=== PATIENT | male | born 1945 | race Caucasian/White ===

== ENCOUNTER 2020-06-15 20:44 | Emergency (ER) | payer MEDICARE, MEDICAID ==
[~2020-06-15] VITALS: Ht 170.2 cm; Wt 61.4 kg
[2020-06-15] MEDS ORDERED: SODIUM CHLORIDE FLUSH 10ML SYR IVF ONE (21:30)
[2020-06-15] MEDS ORDERED: SODIUM CHLORIDE 0.9% 1,000ML IVBOLUS ONE (21:30)
--- NOTE | 2020-06-15 21:45 | NUR ---
PT BIB EMS FOR FAILURE TO THRIVE. PT WAS PLACED ON L2K BY POLICE. HE WAS FOUND IN HIS HOUSE, FOR WHICH HE SAYS HE LIVED THERE FOR 10 YEARS, IT WAS EXTREMELY UNKEPT AND HAD RECENTLY BEEN CONDEMMED BY THE [facility]. THERE WAS SEWAGE EVERYWHERE, NO WAY TO COOK OR STORE FOOD, THE POWER WAS OFF AND THERE WAS NO RUNNING WATER. PT STATES "I AM JUST TOO OLD TO TAKE CARE OF THE PLACE ANYMORE" PT DENIES SI/HI. IV STARTED. LABS DRAWN.
[2020-06-15 22:05] LABS: BASOPHILS % (AUTO) 2 % (0-1); EOSINOPHILS % (AUTO) 1 % (1-7); LYMPHOCYTES % (AUTO) 23 % (22-44); MEAN CORPUSCULAR HEMOGLOBIN 28.7 pg (27.5-34.5); MEAN CORPUSCULAR HGB CONC 31.9 g/dL (33.2-36.2); MEAN PLATELET VOLUME 7.8 fL (7.4-10.4); MONOCYTES % (AUTO) 6 % (2-9); NEUTROPHILS % (AUTO) 67 % (42-75); PLATELET COUNT 218 x10^3/uL (130-400); RED BLOOD COUNT 4.62 x10^6/uL (4.38-5.82); RED CELL DISTRIBUTION WIDTH 17.6 % (9.4-14.8)
[2020-06-15 22:08] LABS: ALBUMIN 3.5 g/dL (3.4-5.0); ANION GAP 3 mmol/L (5-15); CHLORIDE 112 mmol/L (98-107)
[2020-06-15 22:13] LABS: MD NO
[2020-06-15 22:15] LABS: ALANINE AMINOTRANSFERASE 15 U/L (12-78); ALKALINE PHOSPHATASE 87 U/L (45-117); BILIRUBIN,TOTAL 0.4 mg/dL (0.2-1.0); CREATININE 0.97 mg/dL (0.7-1.3); TOTAL PROTEIN 7.3 g/dL (6.4-8.2)
[2020-06-15 22:31] VITALS: BP 108/56
--- NOTE | 2020-06-15 22:31 | NUR ---
PT AMBULATED WITH HIS WALKER DOWN THE HALLWAY AND BACK WITH A STEADY GATE. PT GOT IN AND OUT OF BED SAFELY UNASSITED. PT STATES " I FEEL SAFE TO GO HOME"
== END 2020-06-15 23:22 | disposition home or self-care (01) ==
LOC: ED 21:14
DX: R62.7 Adult failure to thrive (principal); R94.31 Abnormal electrocardiogram [ECG] [EKG]; Z72.9 Problem related to lifestyle, unspecified
CPT/HCPCS: 36415; 80053; 80307; 85025; 93005; 96360; 99284; J7030

== ENCOUNTER 2020-06-19 20:27 | Inpatient (IN) | payer MEDICARE, MEDICAID ==
[~2020-06-19] VITALS: Ht 180.3 cm; Wt 73.0 kg
--- NOTE | 2020-06-19 20:37 | NUR ---
Aaron BIB ambulance with no complaints. Patient was placed on a L2K by [employer] due to failure to thrive. Patient was picked up by EMS from his home which is condemned. Patient states he often does not have a warm/home cooked meal. Patient is incontinent of stool. Hx of HIV which he takes meds for. Patient is in NAD. Respirations even and unlabored.
[2020-06-19 21:42] LABS: ALANINE AMINOTRANSFERASE 14 U/L (12-78); ALBUMIN 3.5 g/dL (3.4-5.0); ANION GAP 2 mmol/L (5-15); CHLORIDE 112 mmol/L (98-107)
[2020-06-19 21:45] LABS: ALKALINE PHOSPHATASE 96 U/L (45-117); BILIRUBIN,TOTAL 0.6 mg/dL (0.2-1.0); CREATININE 1.08 mg/dL (0.7-1.3); TOTAL PROTEIN 7.4 g/dL (6.4-8.2)
[2020-06-19 21:46] LABS: BASOPHILS % (AUTO) 1 % (0-1); EOSINOPHILS % (AUTO) 1 % (1-7); LYMPHOCYTES % (AUTO) 12 % (22-44); MEAN CORPUSCULAR HEMOGLOBIN 28.6 pg (27.5-34.5); MEAN CORPUSCULAR HGB CONC 32.2 g/dL (33.2-36.2); MEAN PLATELET VOLUME 7.5 fL (7.4-10.4); MONOCYTES % (AUTO) 7 % (2-9); NEUTROPHILS % (AUTO) 80 % (42-75); PLATELET COUNT 229 x10^3/uL (130-400); RED BLOOD COUNT 4.78 x10^6/uL (4.38-5.82); RED CELL DISTRIBUTION WIDTH 17.3 % (9.4-14.8)
--- NOTE | 2020-06-19 21:53 | NUR ---
Attempted to contact case management with no success. Decon patient and given new clothing.
[2020-06-19 21:55] LABS: MD NO
[2020-06-20] MEDS ORDERED: ONDANSETRON 2MG/ML, 2ML IVPush PRN
[2020-06-20] MEDS ORDERED: ENALAPRILAT 1.25 MG/ML, 2ML IVPush PRN
[2020-06-20] MEDS ORDERED: LACTATED RINGERS 1,000 ML IV SCH
--- NOTE | 2020-06-20 01:23 | NUR ---
Report given to Gallito. Patient transferred to room 369.
[2020-06-20 01:44] VITALS: BP 137/76
[2020-06-20 04:26] LABS: MICROSCOPIC INDICATED
[2020-06-20 05:43] LABS: BASOPHILS % (AUTO) 1 % (0-1); EOSINOPHILS % (AUTO) 1 % (1-7); LYMPHOCYTES % (AUTO) 15 % (22-44); MEAN CORPUSCULAR HEMOGLOBIN 28.6 pg (27.5-34.5); MEAN PLATELET VOLUME 7.6 fL (7.4-10.4); MONOCYTES % (AUTO) 8 % (2-9); NEUTROPHILS % (AUTO) 75 % (42-75); PLATELET COUNT 212 x10^3/uL (130-400); RED BLOOD COUNT 4.36 x10^6/uL (4.38-5.82); RED CELL DISTRIBUTION WIDTH 17.1 % (9.4-14.8)
[2020-06-20 05:49] LABS: ANION GAP 7 mmol/L (5-15); CALCIUM 8.7 mg/dL (8.5-10.1); CHLORIDE 116 mmol/L (98-107)
[2020-06-20 05:51] LABS: CREATININE 0.96 mg/dL (0.7-1.3)
[2020-06-20 06:00] LABS: MD NO
[2020-06-20 07:29] VITALS: BP 127/78
[2020-06-20] MEDS: PHENAZOPYRIDINE 200 MG TABLET PO PRN ×2 (13:35→20:13)
[2020-06-20] MEDS: CEFTRIAXONE PMX 1GM/50ML 50 ML IV SCH (13:59)
[2020-06-20 14:53] VITALS: BP 113/66
[2020-06-20] MEDS ORDERED: PLEASE ENTER ALLERGIES MC SCH ×2 (16:30)
[2020-06-20] MEDS: ENOXAPARIN 40 MG/0.4 ML SQ SCH (17:34)
[2020-06-20 18:59] VITALS: BP 121/65
[2020-06-20] MEDS: EMTRICITABINE/TENOFOVIR 200 MG/300 MG TABLET PO SCH (20:13)
[2020-06-20] MEDS: EFAVIRENZ 600 MG TAB PO SCH (20:13)
[2020-06-20] MEDS: MELATONIN 5 MG TABLET PO PRN (20:13)
[2020-06-20] MEDS ORDERED: EFAVIRENZ/EMTRICITAB/TENOFOVIR 600MG-200MG-300MG TABLET PO SCH (21:00)
[2020-06-20] MEDS: ACETAMINOPHEN 325 MG TABLET PO PRN (21:46)
[2020-06-21] MEDS: PHENAZOPYRIDINE 200 MG TABLET PO PRN ×3 (04:37→21:22)
[2020-06-21 08:46] VITALS: BP 131/75
[2020-06-21] MEDS: ACETAMINOPHEN 325 MG TABLET PO PRN (13:47)
[2020-06-21] MEDS: CEFTRIAXONE PMX 1GM/50ML 50 ML IV SCH (14:37)
[2020-06-21 15:05] VITALS: BP 94/53
[2020-06-21] MEDS: KETOROLAC 30 MG/1 ML IVPush PRN (15:41)
[2020-06-21] MEDS: ENOXAPARIN 40 MG/0.4 ML SQ SCH (17:40)
[2020-06-21] MEDS: LEVOFLOXACIN/PMX 750MG/150ML 150 ML IV SCH (17:40)
[2020-06-21 18:46] VITALS: BP 92/58
[2020-06-21 21:20] VITALS: BP 94/60
[2020-06-21] MEDS: EMTRICITABINE/TENOFOVIR 200 MG/300 MG TABLET PO SCH (21:22)
[2020-06-21] MEDS: EFAVIRENZ 600 MG TAB PO SCH (21:22)
[2020-06-21 22:00] VITALS: BP_SYST 103; BP_SYST 106; BP_DIAS 60; BP_DIAS 61
[2020-06-22 01:14] VITALS: BP 122/74
[2020-06-22 04:49] LABS: BASOPHILS % (AUTO) 1 % (0-1); EOSINOPHILS % (AUTO) 1 % (1-7); LYMPHOCYTES % (AUTO) 16 % (22-44); MEAN CORPUSCULAR HEMOGLOBIN 28.5 pg (27.5-34.5); MEAN CORPUSCULAR HGB CONC 32.4 g/dL (33.2-36.2); MEAN PLATELET VOLUME 7.7 fL (7.4-10.4); MONOCYTES % (AUTO) 8 % (2-9); NEUTROPHILS % (AUTO) 75 % (42-75); PLATELET COUNT 144 x10^3/uL (130-400); RED BLOOD COUNT 4.24 x10^6/uL (4.38-5.82); RED CELL DISTRIBUTION WIDTH 17.3 % (9.4-14.8)
[2020-06-22 05:00] LABS: ANION GAP 5 mmol/L (5-15); CALCIUM 8.7 mg/dL (8.5-10.1); CHLORIDE 112 mmol/L (98-107)
[2020-06-22 05:01] LABS: CREATININE 0.94 mg/dL (0.7-1.3); MD NO
[2020-06-22 06:47] VITALS: BP 125/81
[2020-06-22] MEDS: PHENAZOPYRIDINE 200 MG TABLET PO PRN ×2 (09:16→13:20)
[2020-06-22 12:05] VITALS: BP 119/78
[2020-06-22] MEDS: KETOROLAC 30 MG/1 ML IVPush PRN (13:20)
[2020-06-22] MEDS: LEVOFLOXACIN/PMX 750MG/150ML 150 ML IV SCH (17:01)
[2020-06-22] MEDS: ENOXAPARIN 40 MG/0.4 ML SQ SCH (17:02)
[2020-06-22 18:21] VITALS: BP 111/68
[2020-06-22] MEDS: EFAVIRENZ 600 MG TAB PO SCH (20:13)
[2020-06-22] MEDS: EMTRICITABINE/TENOFOVIR 200 MG/300 MG TABLET PO SCH (20:13)
[2020-06-23 00:29] VITALS: BP 138/95
[2020-06-23 06:19] VITALS: BP 165/83
[2020-06-23] MEDS: PHENAZOPYRIDINE 200 MG TABLET PO PRN ×2 (09:48→15:59)
[2020-06-23 12:10] VITALS: BP 113/53
[2020-06-23] MEDS: KETOROLAC 30 MG/1 ML IVPush PRN (15:58)
[2020-06-23] MEDS: ENOXAPARIN 40 MG/0.4 ML SQ SCH (15:58)
[2020-06-23] MEDS ORDERED: LEVOFLOXACIN 750 MG TABLET PO SCH (16:00)
[2020-06-23 18:34] VITALS: BP 117/74
[2020-06-23] MEDS: MELATONIN 5 MG TABLET PO PRN (19:49)
[2020-06-23] MEDS: EFAVIRENZ 600 MG TAB PO SCH (19:51)
[2020-06-23] MEDS: EMTRICITABINE/TENOFOVIR 200 MG/300 MG TABLET PO SCH (19:51)
[2020-06-24 00:44] VITALS: BP 107/61
[2020-06-24 05:26] LABS: ANION GAP 4 mmol/L (5-15); CALCIUM 8.9 mg/dL (8.5-10.1); CHLORIDE 113 mmol/L (98-107); CREATININE 0.81 mg/dL (0.7-1.3)
[2020-06-24 06:41] VITALS: BP 123/66
[2020-06-24] MEDS: PHENAZOPYRIDINE 200 MG TABLET PO PRN ×2 (09:26→15:35)
[2020-06-24] MEDS ORDERED: EMTR1TAB8 PO (12:05)
[2020-06-24] MEDS ORDERED: EFAV600T PO (12:05)
[2020-06-24] MEDS ORDERED: CEFD300C37 PO (12:05)
[2020-06-24] MEDS ORDERED: PHEN-583 PO (12:05)
[2020-06-24] MEDS ORDERED: AMOX875T PO (12:05)
[2020-06-24 12:18] VITALS: BP 129/80
[2020-06-24] MEDS: ENOXAPARIN 40 MG/0.4 ML SQ SCH (15:35)
[2020-06-24] MEDS ORDERED: FLU VACC QS2020-21(6MOS UP)/PF 60MCG/0.5 ML SYR IM-VACC ONE (16:00)
[2020-06-24] MEDS ORDERED: CEFDINIR 300 MG CAPSULE PO SCH (21:00)
== END 2020-06-24 17:29 | DRG 690 ==
LOC: ED 21:47 → INTOOBSV 06-20 00:03 → EDIP 06-20 00:03 → 3N 06-20 01:16 → OBSVTOIN 06-21 10:07 → 4WST 06-21 18:26
PROVIDERS: ADMIT Family Medicine; ATTEND Family Medicine
DX: N39.0 Urinary tract infection, site not specified (principal); R32 Unspecified urinary incontinence; R62.7 Adult failure to thrive; E27.9 Disorder of adrenal gland, unspecified; N13.30 Unspecified hydronephrosis; Z21 Asymptomatic human immunodeficiency virus [HIV] infection status
CPT/HCPCS: 36415; 74178; 76770; 80048; 80053; 81001; 82607; 84443; 85025; 86361; 87077; 87086; 87186; 87491; 87591; 90686; 93005; G0378; J0696; J1650; J1885; J1956; 92523-GN; J7120

== ENCOUNTER 2020-08-28 08:27 | Emergency (ER) | payer MEDICARE, MEDICAID ==
[~2020-08-28] VITALS: Ht 180.3 cm; Wt 85.0 kg
[~2020-08-28 08:27] MED LIST: AMOX875T PO; CEFD300C37 PO; EFAV600T PO; EMTR1TAB8 PO; PHEN-583 PO
--- NOTE | 2020-08-28 08:37 | NUR ---
PATIENT BIB [facility] WITH CHIEF C/O URINARY RETENTION AND RIGHT RIB PAIN. PER EMS PATIENT WAS AT [facility] 4 DAYS AGO FOR URINARY RETENTION, PATIENT HAD A COREY THAT WAS REMOVED AT [facility] AND HE WAS DISCHARGED HOME. PATIENT HAS NOT URINATED SINCE BEING DISCHARGED 4 DAYS AGO. PATIENT FELL YESTERDAY 08/27/2020 AND C/O OF RIGHT RIB PAIN. PER EMS PATIENT HAS BEEN TAKING THREE 325 MG ASPIRIN'S SINCE YESTERDAY FOR HIS RIB PAIN. PER EMS VITALS STABLE EN ROUTE. NADN, VSS, 20 GAUGE IV STARTED LEFT WRIST, SIDE RAILS UP X2, CALL LIGHT WITHIN REACH.
--- NOTE | 2020-08-28 08:37 | NUR ---
PATIENT PROVIDED URINAL TO TRY AND URINATE, PATIENT HAS THE URGE, BUT UNABLE TO URINATE. BLADDER SCAN SHOWED 346 mLS IN BLADDER.
[2020-08-28 08:54] LABS: BASOPHILS % (AUTO) 1 % (0-1); EOSINOPHILS % (AUTO) 0 % (1-7); LYMPHOCYTES % (AUTO) 20 % (22-44); MEAN CORPUSCULAR HEMOGLOBIN 30.4 pg (27.5-34.5); MEAN CORPUSCULAR HGB CONC 33.4 g/dL (33.2-36.2); MEAN PLATELET VOLUME 7.2 fL (7.4-10.4); MONOCYTES % (AUTO) 9 % (2-9); NEUTROPHILS % (AUTO) 70 % (42-75); PLATELET COUNT 162 x10^3/uL (130-400); RED BLOOD COUNT 4.24 x10^6/uL (4.38-5.82); RED CELL DISTRIBUTION WIDTH 17.6 % (9.4-14.8)
[2020-08-28 08:59] LABS: MD NO
[2020-08-28] MEDS ORDERED: OXYcodone/APAP 5/325MG TABLET PO ONE (09:00)
[2020-08-28] MEDS ORDERED: OXYcodone/APAP 5/325MG TABLET ONE (09:01)
[2020-08-28 09:07] LABS: ALBUMIN 3.8 g/dL (3.4-5.0); ANION GAP 6 mmol/L (5-15); CALCIUM 9.2 mg/dL (8.5-10.1); CHLORIDE 116 mmol/L (98-107)
[2020-08-28 09:10] LABS: ALANINE AMINOTRANSFERASE 23 U/L (12-78); ALKALINE PHOSPHATASE 82 U/L (45-117); BILIRUBIN,TOTAL 0.6 mg/dL (0.2-1.0); CREATININE 1.15 mg/dL (0.7-1.3); TOTAL PROTEIN 7.4 g/dL (6.4-8.2)
--- NOTE | 2020-08-28 09:25 | NUR ---
PATIENT MEDICATED PER [facility], INCENTIVE SPIROMETER GIVEN TO PATIENT AND PATIENT EDUCATED ON USE. 16 Nigerien COREY PLACED, AND URINE SAMPLE COLLECTED AND SENT TO LAB. PATIENT TOLERATED PROCEDURE WELL. CATARINAN, VSS, CALL LIGHT WITHIN REACH, SIDE RAILS UP X2.
[2020-08-28] MEDS ORDERED: CEFTRIAXONE PMX 1GM/50ML 50 ML ONE (09:39)
[2020-08-28] MEDS ORDERED: AZITHROMYCIN 500 MG in SODIUM CHLORIDE 0.9% 250 ML IV ONE (10:00)
[2020-08-28 10:15] LABS: MICROSCOPIC AUTO
--- NOTE | 2020-08-28 10:42 | NUR ---
PATIENT RESTING IN GURNEY WITH EYES CLOSED, RESP EVEN AND UNLABORED, NADN, VSS, SIDE RAILS UP X2, CALL LIGHT WITHIN REACH. SOCIAL WORK PAGED.
[2020-08-28] MEDS ORDERED: CEFTRIAXONE PMX 1GM/50ML 50 ML IV ONE (11:00)
--- NOTE | 2020-08-28 11:30 | NUR ---
AMBULATED WITH PATIENT 100 FEET DOWN THE [place], PATIENT WAS STEADY WITH USE OF CANE.
[2020-08-28 12:12] VITALS: BP 108/66
== END 2020-08-28 12:54 | disposition home or self-care (01) ==
LOC: ED 08:42
DX: J18.0 Bronchopneumonia, unspecified organism (principal); N30.00 Acute cystitis without hematuria; N40.1 Benign prostatic hyperplasia with lower urinary tract symptoms; R33.8 Other retention of urine; I44.7 Left bundle-branch block, unspecified; I25.2 Old myocardial infarction; Z87.891 Personal history of nicotine dependence
CPT/HCPCS: 36415; 51702; 71045; 80053; 81001; 85025; 87086; 87106; 93005; 96365; 96368; 99285; J0456; J0696; J7050

== ENCOUNTER 2020-09-01 09:23 | Inpatient (IN) | payer MEDICARE, MEDICAID ==
[~2020-09-01] VITALS: Ht 180.3 cm; Wt 84.4 kg
--- NOTE | 2020-09-01 09:35 | NUR ---
Pt knows who he is and where he is, however he believes it to be October 2002. Pt came from home where he lives with a significant other. Social work to be consulted. Pt was here approx 1 week ago for urinary retention. Pt has aguilar cath. Urine in bag with sedementation. Pt does not have temp but is breathing at a rapid shallow rate. Pt returned this AM after new loss of bowel control. Pt connected to BP and O2 monitors. Call light in reach.
[2020-09-01 10:13] LABS: BASOPHILS % (AUTO) 1 % (0-1); EOSINOPHILS % (AUTO) 2 % (1-7); LYMPHOCYTES % (AUTO) 20 % (22-44); MD NO; MEAN CORPUSCULAR HEMOGLOBIN 29.8 pg (27.5-34.5); MEAN PLATELET VOLUME 7.2 fL (7.4-10.4); MONOCYTES % (AUTO) 10 % (2-9); NEUTROPHILS % (AUTO) 67 % (42-75); PLATELET COUNT 186 x10^3/uL (130-400); RED BLOOD COUNT 4.41 x10^6/uL (4.38-5.82); RED CELL DISTRIBUTION WIDTH 17.2 % (9.4-14.8)
[2020-09-01 10:21] LABS: ALANINE AMINOTRANSFERASE 17 U/L (12-78); ALBUMIN 3.6 g/dL (3.4-5.0); ANION GAP 5 mmol/L (5-15); CALCIUM 9.1 mg/dL (8.5-10.1); CHLORIDE 114 mmol/L (98-107); CREATININE 1.07 mg/dL (0.7-1.3)
[2020-09-01 10:23] LABS: ALKALINE PHOSPHATASE 84 U/L (45-117); BILIRUBIN,TOTAL 0.4 mg/dL (0.2-1.0); TOTAL PROTEIN 7.5 g/dL (6.4-8.2)
[2020-09-01] MEDS ORDERED: MORPHINE SULFATE 4 MG/ML, 1ML IVPush PRN (11:00)
[2020-09-01] MEDS ORDERED: ONDANSETRON 2MG/ML, 2ML IVPush ONE (11:00)
[2020-09-01] MEDS ORDERED: SODIUM CHLORIDE 0.9% 1,000ML IVBOLUS ONE (11:00)
[2020-09-01 11:21] LABS: MICROSCOPIC INDICATED
--- NOTE | 2020-09-01 12:15 | NUR ---
Pt to CT at this time.
[2020-09-01] MEDS ORDERED: OMNIPAQUE 350 MG/ML, 100ML BOTTLE ONE (12:53)
--- NOTE | 2020-09-01 13:17 | NUR ---
Pt sleeping. Visible chest rise and fall. Awaiting CT reads and will put chart back up for recheck.
[2020-09-01] MEDS ORDERED: CEFTRIAXONE PMX 1GM/50ML 50 ML IVPB ONE (14:30)
[2020-09-01] MEDS ORDERED: CEFTRIAXONE PMX 1GM/50ML 50 ML ONE (14:42)
--- NOTE | 2020-09-01 14:55 | NUR ---
Report to SUKHWINDER Gilbert. Pt sleeping. NADN. All needs met.
--- NOTE | 2020-09-01 14:55 | NUR ---
Social work involved with this patient's care. Per social work EPS already aware of this patient.
[2020-09-01] MEDS ORDERED: PHENAZOPYRIDINE 200 MG TABLET PO PRN (15:00)
[2020-09-01 15:23] VITALS: BP 137/84
[2020-09-01] MEDS ORDERED: GADOTERATE 10 MMOL/20 ML VIAL ONE (16:19)
[2020-09-01 16:33] LABS: AMPHETAMINE SCREEN, URINE Negative (Negative); BARBITURATE SCREEN, URINE Negative (Negative); BENZODIAZEPINE SCREEN, URINE Negative (Negative); CANNABINOID SCREEN, URINE Negative (Negative); COCAINE SCREEN, URINE Negative (Negative); METHADONE SCREEN, URINE Negative (Negative); OPIATE SCREEN, URINE Negative (Negative)
[2020-09-01 18:48] VITALS: BP 102/62
[2020-09-01] MEDS ORDERED: ASPIRIN 81 MG TABLET CHEW PO ONE (19:00)
[2020-09-01] MEDS ORDERED: POLYETHYLENE GLYCOL 17 GM PACKET PO PRN (19:00)
[2020-09-01] MEDS: LACTATED RINGERS 1,000 ML IV SCH (19:34)
[2020-09-01] MEDS: ENOXAPARIN 40 MG/0.4 ML SQ SCH (19:43)
[2020-09-01] MEDS: EMTRICITABINE/TENOFOVIR 200 MG/300 MG TABLET PO SCH (19:44)
[2020-09-01] MEDS: EFAVIRENZ 600 MG TAB PO SCH (19:44)
[2020-09-02 00:59] VITALS: BP 133/76
[2020-09-02] MEDS: LACTATED RINGERS 1,000 ML IV SCH ×3 (04:41→23:22)
[2020-09-02 05:15] LABS: CHOL/HDL RATIO 2.4
[2020-09-02] MEDS: ASPIRIN 81 MG TABLET CHEW PO SCH (06:54)
[2020-09-02 07:56] VITALS: BP 131/76
[2020-09-02] MEDS: SENNA/DOCUSATE TABLET PO SCH (08:22)
[2020-09-02] MEDS: CLOPIDOGREL 75 MG TABLET PO SCH (08:22)
[2020-09-02 13:03] VITALS: BP 102/57
[2020-09-02] MEDS ORDERED: POLYETHYLENE GLYCOL 17 GM PACKET NG PRN (16:00)
[2020-09-02 18:54] VITALS: BP 97/55
[2020-09-02] MEDS: ENOXAPARIN 40 MG/0.4 ML SQ SCH (20:01)
[2020-09-02] MEDS: EFAVIRENZ 600 MG TAB PO SCH (20:02)
[2020-09-02] MEDS: EMTRICITABINE/TENOFOVIR 200 MG/300 MG TABLET PO SCH (20:02)
[2020-09-03 01:36] VITALS: BP 144/73
[2020-09-03] MEDS: HYDROcodone/APAP 5/325 TABLET PO PRN (03:29)
[2020-09-03] MEDS: ASPIRIN 81 MG TABLET CHEW PO SCH (05:31)
[2020-09-03 07:08] VITALS: BP 102/68
[2020-09-03] MEDS: CLOPIDOGREL 75 MG TABLET PO SCH (08:25)
[2020-09-03] MEDS: SENNA/DOCUSATE TABLET PO SCH (08:26)
[2020-09-03] MEDS: LACTATED RINGERS 1,000 ML IV SCH (11:03)
[2020-09-03 12:15] VITALS: BP 116/67
[2020-09-03] MEDS: ENOXAPARIN 40 MG/0.4 ML SQ SCH (19:30)
[2020-09-03] MEDS: EMTRICITABINE/TENOFOVIR 200 MG/300 MG TABLET PO SCH (19:30)
[2020-09-03] MEDS: EFAVIRENZ 600 MG TAB PO SCH (19:31)
[2020-09-03 20:04] VITALS: BP 136/65
[2020-09-04 01:37] VITALS: BP 131/76
[2020-09-04] MEDS: ASPIRIN 81 MG TABLET CHEW PO SCH (05:09)
[2020-09-04 06:28] LABS: CREATININE 0.95 mg/dL (0.7-1.3)
[2020-09-04] MEDS: SENNA/DOCUSATE TABLET PO SCH (08:45)
[2020-09-04] MEDS: CLOPIDOGREL 75 MG TABLET PO SCH (08:45)
[2020-09-04 09:19] VITALS: BP 115/77
[2020-09-04 14:38] LABS: TROPONIN I < 0.015 ng/mL (0.000-0.045)
[2020-09-04 15:27] VITALS: BP 111/68
[2020-09-04 19:20] VITALS: BP 98/59
[2020-09-04] MEDS: ENOXAPARIN 40 MG/0.4 ML SQ SCH (20:02)
[2020-09-04] MEDS: EMTRICITABINE/TENOFOVIR 200 MG/300 MG TABLET PO SCH (21:14)
[2020-09-04] MEDS: EFAVIRENZ 600 MG TAB PO SCH (21:14)
[2020-09-05] MEDS: HYDROcodone/APAP 5/325 TABLET PO PRN ×2 (00:58→06:29)
[2020-09-05 01:31] VITALS: BP 126/68
[2020-09-05 04:28] LABS: TROPONIN I < 0.015 ng/mL (0.000-0.045)
[2020-09-05] MEDS: ASPIRIN 81 MG TABLET CHEW PO SCH (06:30)
[2020-09-05 07:41] VITALS: BP 118/64
[2020-09-05] MEDS ORDERED: REGADENOSON 0.4 MG/5 ML SYRINGE ONE (08:11)
[2020-09-05] MEDS: SENNA/DOCUSATE TABLET PO SCH (09:56)
[2020-09-05] MEDS: CLOPIDOGREL 75 MG TABLET PO SCH (09:56)
[2020-09-05] MEDS: ONDANSETRON ODT 4 MG PO PRN (09:56)
[2020-09-05 12:23] LABS: BASOPHILS % (AUTO) 1 % (0-1); EOSINOPHILS % (AUTO) 2 % (1-7); LYMPHOCYTES % (AUTO) 25 % (22-44); MEAN CORPUSCULAR HEMOGLOBIN 29.9 pg (27.5-34.5); MEAN CORPUSCULAR HGB CONC 33.6 g/dL (33.2-36.2); MEAN PLATELET VOLUME 7.3 fL (7.4-10.4); MONOCYTES % (AUTO) 11 % (2-9); NEUTROPHILS % (AUTO) 61 % (42-75); PLATELET COUNT 175 x10^3/uL (130-400); RED CELL DISTRIBUTION WIDTH 16.7 % (9.4-14.8)
[2020-09-05 12:24] LABS: MD NO
[2020-09-05 12:36] LABS: ANION GAP 4 mmol/L (5-15); CHLORIDE 110 mmol/L (98-107)
[2020-09-05 13:03] LABS: CREATININE 0.93 mg/dL (0.7-1.3)
[2020-09-05 13:57] VITALS: BP 102/64
[2020-09-05] MEDS: ENOXAPARIN 40 MG/0.4 ML SQ SCH (17:31)
[2020-09-05 20:01] VITALS: BP 104/66
[2020-09-05] MEDS ORDERED: FAMOTIDINE 40 MG TABLET ONE (21:35)
[2020-09-05] MEDS: FAMOTIDINE 20 MG TABLET PO SCH (21:39)
[2020-09-05] MEDS: EFAVIRENZ 600 MG TAB PO SCH (21:40)
[2020-09-05] MEDS: EMTRICITABINE/TENOFOVIR 200 MG/300 MG TABLET PO SCH (21:41)
[2020-09-06 01:29] VITALS: BP 112/68
[2020-09-06] MEDS: HYDROcodone/APAP 5/325 TABLET PO PRN ×2 (04:07→20:09)
[2020-09-06] MEDS: ASPIRIN 81 MG TABLET CHEW PO SCH (04:07)
[2020-09-06 04:27] VITALS: BP 86/47
[2020-09-06 07:51] VITALS: BP 128/68
[2020-09-06] MEDS ORDERED: FAMOTIDINE 40 MG TABLET ONE (09:54)
[2020-09-06] MEDS: SENNA/DOCUSATE TABLET PO SCH (10:02)
[2020-09-06] MEDS: CYANOCOBALAMIN 1,000 MCG TABLET PO SCH (10:02)
[2020-09-06] MEDS: CLOPIDOGREL 75 MG TABLET PO SCH (10:02)
[2020-09-06] MEDS: FAMOTIDINE 20 MG TABLET PO SCH ×2 (10:03→20:09)
[2020-09-06 10:16] LABS: BASOPHILS % (AUTO) 1 % (0-1); EOSINOPHILS % (AUTO) 1 % (1-7); LYMPHOCYTES % (AUTO) 32 % (22-44); MEAN CORPUSCULAR HEMOGLOBIN 29.8 pg (27.5-34.5); MEAN CORPUSCULAR HGB CONC 33.6 g/dL (33.2-36.2); MEAN PLATELET VOLUME 7.7 fL (7.4-10.4); MONOCYTES % (AUTO) 10 % (2-9); NEUTROPHILS % (AUTO) 56 % (42-75); PLATELET COUNT 177 x10^3/uL (130-400); RED BLOOD COUNT 4.33 x10^6/uL (4.38-5.82); RED CELL DISTRIBUTION WIDTH 16.6 % (9.4-14.8)
[2020-09-06 10:26] LABS: ANION GAP 5 mmol/L (5-15); CALCIUM 9.4 mg/dL (8.5-10.1); CHLORIDE 109 mmol/L (98-107)
[2020-09-06 10:27] LABS: CREATININE 0.98 mg/dL (0.7-1.3)
[2020-09-06 10:29] LABS: MD NO
[2020-09-06] MEDS: LISINOPRIL 5 MG TABLET PO SCH (11:38)
[2020-09-06 13:17] VITALS: BP 131/74
[2020-09-06] MEDS: CARVEDILOL 6.25 MG TABLET PO SCH (17:58)
[2020-09-06] MEDS: ENOXAPARIN 40 MG/0.4 ML SQ SCH (17:59)
[2020-09-06 19:27] VITALS: BP 95/61
[2020-09-06] MEDS: EMTRICITABINE/TENOFOVIR 200 MG/300 MG TABLET PO SCH (20:08)
[2020-09-06] MEDS: EFAVIRENZ 600 MG TAB PO SCH (20:09)
[2020-09-06] MEDS: ATORVASTATIN 40 MG TABLET PO SCH (20:09)
[2020-09-07 02:52] VITALS: BP 105/74
[2020-09-07] MEDS: ASPIRIN 81 MG TABLET CHEW PO SCH (05:38)
[2020-09-07] MEDS: HYDROcodone/APAP 5/325 TABLET PO PRN (05:38)
[2020-09-07] MEDS: CARVEDILOL 6.25 MG TABLET PO SCH ×2 (05:38→18:02)
[2020-09-07 05:46] LABS: ANION GAP 5 mmol/L (5-15); BASOPHILS % (AUTO) 1 % (0-1); CALCIUM 9.1 mg/dL (8.5-10.1); CHLORIDE 110 mmol/L (98-107); EOSINOPHILS % (AUTO) 1 % (1-7); LYMPHOCYTES % (AUTO) 35 % (22-44); MEAN CORPUSCULAR HEMOGLOBIN 29.7 pg (27.5-34.5); MEAN CORPUSCULAR HGB CONC 33.4 g/dL (33.2-36.2); MEAN PLATELET VOLUME 7.5 fL (7.4-10.4); MONOCYTES % (AUTO) 11 % (2-9); NEUTROPHILS % (AUTO) 52 % (42-75); PLATELET COUNT 193 x10^3/uL (130-400); RED CELL DISTRIBUTION WIDTH 17.1 % (9.4-14.8)
[2020-09-07 05:48] LABS: CREATININE 0.94 mg/dL (0.7-1.3)
[2020-09-07 05:57] LABS: MD NO
[2020-09-07 08:16] VITALS: BP 100/62
[2020-09-07] MEDS ORDERED: FAMOTIDINE 40 MG TABLET ONE ×2 (08:34→21:10)
[2020-09-07] MEDS: CLOPIDOGREL 75 MG TABLET PO SCH (08:38)
[2020-09-07] MEDS: LISINOPRIL 5 MG TABLET PO SCH (08:38)
[2020-09-07] MEDS: SENNA/DOCUSATE TABLET PO SCH (08:38)
[2020-09-07] MEDS: FAMOTIDINE 20 MG TABLET PO SCH ×2 (08:38→21:24)
[2020-09-07] MEDS: CYANOCOBALAMIN 1,000 MCG TABLET PO SCH (08:38)
[2020-09-07] MEDS ORDERED: GADOTERATE 7.5 MMOL/15 ML VIAL ONE (10:16)
[2020-09-07 14:09] VITALS: BP 103/59
[2020-09-07 18:01] VITALS: BP 96/54
[2020-09-07] MEDS: ENOXAPARIN 40 MG/0.4 ML SQ SCH (18:02)
[2020-09-07] MEDS: EMTRICITABINE/TENOFOVIR 200 MG/300 MG TABLET PO SCH (21:23)
[2020-09-07] MEDS: EFAVIRENZ 600 MG TAB PO SCH (21:23)
[2020-09-07] MEDS: ATORVASTATIN 40 MG TABLET PO SCH (21:24)
[2020-09-07 21:28] VITALS: BP 96/63
[2020-09-08 00:52] VITALS: BP 116/74
[2020-09-08 04:38] LABS: BASOPHILS % (AUTO) 1 % (0-1); EOSINOPHILS % (AUTO) 1 % (1-7); LYMPHOCYTES % (AUTO) 29 % (22-44); MEAN CORPUSCULAR HGB CONC 33.8 g/dL (33.2-36.2); MEAN PLATELET VOLUME 7.5 fL (7.4-10.4); MONOCYTES % (AUTO) 9 % (2-9); NEUTROPHILS % (AUTO) 60 % (42-75); PLATELET COUNT 183 x10^3/uL (130-400); RED BLOOD COUNT 4.34 x10^6/uL (4.38-5.82); RED CELL DISTRIBUTION WIDTH 16.9 % (9.4-14.8)
[2020-09-08 04:48] LABS: ALBUMIN 3.1 g/dL (3.4-5.0); ANION GAP 4 mmol/L (5-15); CHLORIDE 111 mmol/L (98-107)
[2020-09-08 04:53] LABS: ALANINE AMINOTRANSFERASE 17 U/L (12-78); ALKALINE PHOSPHATASE 109 U/L (45-117); BILIRUBIN,TOTAL 0.5 mg/dL (0.2-1.0); CREATININE 0.93 mg/dL (0.7-1.3); TOTAL PROTEIN 6.9 g/dL (6.4-8.2)
[2020-09-08] MEDS: CARVEDILOL 6.25 MG TABLET PO SCH ×2 (05:11→18:21)
[2020-09-08] MEDS: ASPIRIN 81 MG TABLET CHEW PO SCH (05:11)
[2020-09-08 05:21] LABS: MD NO
[2020-09-08 08:19] VITALS: BP 100/63
[2020-09-08] MEDS: LISINOPRIL 5 MG TABLET PO SCH (08:22)
[2020-09-08] MEDS ORDERED: FAMOTIDINE 40 MG TABLET ONE (08:24)
[2020-09-08] MEDS: CYANOCOBALAMIN 1,000 MCG TABLET PO SCH (08:26)
[2020-09-08] MEDS: CLOPIDOGREL 75 MG TABLET PO SCH (08:26)
[2020-09-08] MEDS: FAMOTIDINE 20 MG TABLET PO SCH ×2 (08:26→20:02)
[2020-09-08] MEDS: SENNA/DOCUSATE TABLET PO SCH (08:26)
[2020-09-08] MEDS: HYDROcodone/APAP 5/325 TABLET PO PRN ×2 (08:29→20:00)
[2020-09-08] MEDS ORDERED: ATOR40TA78 PO (11:51)
[2020-09-08] MEDS ORDERED: CLOP75TA PO (11:51)
[2020-09-08] MEDS ORDERED: LISI5TAB7 PO ×2 (11:51)
[2020-09-08] MEDS ORDERED: ASPI-963 PO (11:51)
[2020-09-08] MEDS ORDERED: CARV6.2512 PO ×2 (11:51)
[2020-09-08 15:59] VITALS: BP 116/75
[2020-09-08 18:18] VITALS: BP 103/66
[2020-09-08] MEDS: ENOXAPARIN 40 MG/0.4 ML SQ SCH (18:21)
[2020-09-08 18:39] VITALS: BP 104/66
[2020-09-08] MEDS: ATORVASTATIN 40 MG TABLET PO SCH (19:59)
[2020-09-08] MEDS: EMTRICITABINE/TENOFOVIR 200 MG/300 MG TABLET PO SCH (20:00)
[2020-09-08] MEDS: EFAVIRENZ 600 MG TAB PO SCH (20:00)
[2020-09-09 01:10] VITALS: BP 125/74
[2020-09-09] MEDS: ASPIRIN 81 MG TABLET CHEW PO SCH (05:44)
[2020-09-09] MEDS: CARVEDILOL 6.25 MG TABLET PO SCH ×2 (05:44→17:13)
[2020-09-09 05:50] LABS: BASOPHILS % (AUTO) 1 % (0-1); EOSINOPHILS % (AUTO) 2 % (1-7); LYMPHOCYTES % (AUTO) 30 % (22-44); MEAN CORPUSCULAR HGB CONC 33.4 g/dL (33.2-36.2); MEAN PLATELET VOLUME 7.3 fL (7.4-10.4); MONOCYTES % (AUTO) 10 % (2-9); NEUTROPHILS % (AUTO) 57 % (42-75); PLATELET COUNT 196 x10^3/uL (130-400); RED BLOOD COUNT 4.14 x10^6/uL (4.38-5.82); RED CELL DISTRIBUTION WIDTH 16.9 % (9.4-14.8)
[2020-09-09 05:52] LABS: MD NO
[2020-09-09 06:08] LABS: CHLORIDE 110 mmol/L (98-107)
[2020-09-09 06:20] LABS: ANION GAP 5 mmol/L (5-15); CALCIUM 8.8 mg/dL (8.5-10.1); CREATININE 0.92 mg/dL (0.7-1.3)
[2020-09-09 08:16] VITALS: BP 111/70
[2020-09-09] MEDS ORDERED: FAMOTIDINE 40 MG TABLET ONE (10:41)
[2020-09-09] MEDS: FAMOTIDINE 20 MG TABLET PO SCH (10:43)
[2020-09-09] MEDS: LISINOPRIL 5 MG TABLET PO SCH (10:43)
[2020-09-09] MEDS: CYANOCOBALAMIN 1,000 MCG TABLET PO SCH (10:43)
[2020-09-09] MEDS: CLOPIDOGREL 75 MG TABLET PO SCH (10:43)
[2020-09-09] MEDS: SENNA/DOCUSATE TABLET PO SCH (10:44)
[2020-09-09 12:46] VITALS: BP 104/64
[2020-09-09 17:12] VITALS: BP 107/50
[2020-09-09] MEDS: ENOXAPARIN 40 MG/0.4 ML SQ SCH (17:13)
[2020-09-09 18:20] VITALS: BP 94/64
[2020-09-09] MEDS: EFAVIRENZ 600 MG TAB PO SCH (20:21)
[2020-09-09] MEDS: ACETAMINOPHEN 325 MG TABLET PO PRN (20:21)
[2020-09-09] MEDS: EMTRICITABINE/TENOFOVIR 200 MG/300 MG TABLET PO SCH (20:21)
[2020-09-09] MEDS: ATORVASTATIN 40 MG TABLET PO SCH (20:21)
[2020-09-10 00:32] VITALS: BP 113/71
[2020-09-10] MEDS: ASPIRIN 81 MG TABLET CHEW PO SCH (04:49)
[2020-09-10] MEDS: CARVEDILOL 6.25 MG TABLET PO SCH ×2 (04:49→17:44)
[2020-09-10 07:12] VITALS: BP 103/63
[2020-09-10] MEDS: SENNA/DOCUSATE TABLET PO SCH (08:28)
[2020-09-10] MEDS: CLOPIDOGREL 75 MG TABLET PO SCH (08:29)
[2020-09-10] MEDS: CYANOCOBALAMIN 1,000 MCG TABLET PO SCH (08:29)
[2020-09-10] MEDS: LISINOPRIL 5 MG TABLET PO SCH (08:29)
[2020-09-10 13:31] VITALS: BP_SYST 107; BP_SYST 95; BP_DIAS 59; BP_DIAS 70
[2020-09-10 17:43] VITALS: BP 92/52
[2020-09-10] MEDS: ENOXAPARIN 40 MG/0.4 ML SQ SCH (17:44)
[2020-09-10 18:34] VITALS: BP 100/58
[2020-09-10] MEDS: EFAVIRENZ 600 MG TAB PO SCH (19:35)
[2020-09-10] MEDS: EMTRICITABINE/TENOFOVIR 200 MG/300 MG TABLET PO SCH (19:35)
[2020-09-10] MEDS: ATORVASTATIN 40 MG TABLET PO SCH (19:35)
[2020-09-11 00:14] VITALS: BP 117/74
[2020-09-11] MEDS: TRAZODONE 50MG TABLET PO PRN ×2 (01:14→20:24)
[2020-09-11] MEDS: CARVEDILOL 6.25 MG TABLET PO SCH ×2 (05:20→17:13)
[2020-09-11] MEDS: ASPIRIN 81 MG TABLET CHEW PO SCH (05:20)
[2020-09-11 07:48] VITALS: BP 113/70
[2020-09-11] MEDS: LISINOPRIL 5 MG TABLET PO SCH (08:12)
[2020-09-11] MEDS: CLOPIDOGREL 75 MG TABLET PO SCH (08:12)
[2020-09-11] MEDS: SENNA/DOCUSATE TABLET PO SCH (08:12)
[2020-09-11] MEDS: CYANOCOBALAMIN 1,000 MCG TABLET PO SCH (08:12)
--- NOTE | 2020-09-11 11:40 | NUR ---
Nursing Activity Sheet 1. Up in chair 3x's a day. 2. Seated exercises per handout 2-3x's a day. Reviewed activity sheet with patient and nursing. Addendum: 09/11/20 at 1517 by ADAMS CEDILLO PTA Amended: Links added.
[2020-09-11 12:59] VITALS: BP 96/59
[2020-09-11] MEDS: HYDROcodone/APAP 5/325 TABLET PO PRN (13:28)
[2020-09-11] MEDS: ENOXAPARIN 40 MG/0.4 ML SQ SCH (17:13)
[2020-09-11 19:09] VITALS: BP 99/55
[2020-09-11] MEDS: ATORVASTATIN 40 MG TABLET PO SCH (20:24)
[2020-09-11] MEDS: EMTRICITABINE/TENOFOVIR 200 MG/300 MG TABLET PO SCH (20:24)
[2020-09-11] MEDS: EFAVIRENZ 600 MG TAB PO SCH (20:24)
[2020-09-12 00:57] VITALS: BP 121/81
[2020-09-12] MEDS: ASPIRIN 81 MG TABLET CHEW PO SCH (05:18)
[2020-09-12] MEDS: CARVEDILOL 6.25 MG TABLET PO SCH ×2 (05:18→17:42)
[2020-09-12 07:09] VITALS: BP 117/62
[2020-09-12] MEDS: CLOPIDOGREL 75 MG TABLET PO SCH (08:38)
[2020-09-12] MEDS: CYANOCOBALAMIN 1,000 MCG TABLET PO SCH (08:38)
[2020-09-12] MEDS: LISINOPRIL 5 MG TABLET PO SCH (08:38)
[2020-09-12] MEDS: SENNA/DOCUSATE TABLET PO SCH (08:39)
[2020-09-12 17:18] VITALS: BP 105/70
[2020-09-12] MEDS: ENOXAPARIN 40 MG/0.4 ML SQ SCH (17:42)
[2020-09-12] MEDS: TRAZODONE 50MG TABLET PO PRN ×2 (20:34→22:07)
[2020-09-12] MEDS: EFAVIRENZ 600 MG TAB PO SCH (20:34)
[2020-09-12] MEDS: EMTRICITABINE/TENOFOVIR 200 MG/300 MG TABLET PO SCH (20:34)
[2020-09-12] MEDS: ATORVASTATIN 40 MG TABLET PO SCH (20:37)
[2020-09-12 22:00] VITALS: BP 111/69
[2020-09-13] MEDS: HYDROcodone/APAP 5/325 TABLET PO PRN (04:20)
[2020-09-13] MEDS: ASPIRIN 81 MG TABLET CHEW PO SCH (06:15)
[2020-09-13] MEDS: CARVEDILOL 6.25 MG TABLET PO SCH ×2 (06:15→17:16)
[2020-09-13 06:16] VITALS: BP 114/69
[2020-09-13 07:24] LABS: CREATININE 0.91 mg/dL (0.7-1.3)
[2020-09-13] MEDS: CLOPIDOGREL 75 MG TABLET PO SCH (08:37)
[2020-09-13] MEDS: CYANOCOBALAMIN 1,000 MCG TABLET PO SCH (08:38)
[2020-09-13] MEDS: LISINOPRIL 5 MG TABLET PO SCH (08:38)
[2020-09-13] MEDS: SENNA/DOCUSATE TABLET PO SCH (08:38)
[2020-09-13 12:18] VITALS: BP 94/60
[2020-09-13 17:17] VITALS: BP 100/61
[2020-09-13 19:38] VITALS: BP 92/45
[2020-09-13] MEDS: EFAVIRENZ 600 MG TAB PO SCH (21:01)
[2020-09-13] MEDS: ATORVASTATIN 40 MG TABLET PO SCH (21:01)
[2020-09-13] MEDS: EMTRICITABINE/TENOFOVIR 200 MG/300 MG TABLET PO SCH (21:01)
[2020-09-13] MEDS: ENOXAPARIN 40 MG/0.4 ML SQ SCH (21:01)
[2020-09-13] MEDS: TRAZODONE 50MG TABLET PO PRN (21:01)
[2020-09-14 00:21] VITALS: BP 100/65
[2020-09-14] MEDS: ASPIRIN 81 MG TABLET CHEW PO SCH (05:17)
[2020-09-14 05:20] VITALS: BP 120/67
[2020-09-14] MEDS: CARVEDILOL 6.25 MG TABLET PO SCH ×2 (05:20→17:03)
[2020-09-14 05:54] LABS: BASOPHILS % (AUTO) 1 % (0-1); EOSINOPHILS % (AUTO) 1 % (1-7); LYMPHOCYTES % (AUTO) 25 % (22-44); MEAN CORPUSCULAR HEMOGLOBIN 30.1 pg (27.5-34.5); MEAN CORPUSCULAR HGB CONC 33.6 g/dL (33.2-36.2); MEAN PLATELET VOLUME 7.2 fL (7.4-10.4); MONOCYTES % (AUTO) 9 % (2-9); NEUTROPHILS % (AUTO) 63 % (42-75); PLATELET COUNT 196 x10^3/uL (130-400); RED BLOOD COUNT 4.03 x10^6/uL (4.38-5.82); RED CELL DISTRIBUTION WIDTH 17.1 % (9.4-14.8)
[2020-09-14 06:03] LABS: CHLORIDE 109 mmol/L (98-107)
[2020-09-14 06:13] LABS: ALANINE AMINOTRANSFERASE 47 U/L (12-78); ALBUMIN 3.1 g/dL (3.4-5.0); ALKALINE PHOSPHATASE 119 U/L (45-117); ANION GAP 3 mmol/L (5-15); BILIRUBIN,TOTAL 0.4 mg/dL (0.2-1.0); CREATININE 0.89 mg/dL (0.7-1.3); TOTAL PROTEIN 6.6 g/dL (6.4-8.2)
[2020-09-14 06:21] LABS: MD NO
[2020-09-14 07:14] VITALS: BP 118/76
[2020-09-14] MEDS: CLOPIDOGREL 75 MG TABLET PO SCH (07:51)
[2020-09-14] MEDS: SENNA/DOCUSATE TABLET PO SCH (07:51)
[2020-09-14] MEDS: CYANOCOBALAMIN 1,000 MCG TABLET PO SCH (07:51)
[2020-09-14] MEDS: LISINOPRIL 5 MG TABLET PO SCH (07:51)
[2020-09-14 12:30] VITALS: BP 103/64
[2020-09-14 20:31] VITALS: BP 110/67
[2020-09-14] MEDS: ATORVASTATIN 40 MG TABLET PO SCH (20:43)
[2020-09-14] MEDS: ENOXAPARIN 40 MG/0.4 ML SQ SCH (20:43)
[2020-09-14] MEDS: EMTRICITABINE/TENOFOVIR 200 MG/300 MG TABLET PO SCH (20:43)
[2020-09-14] MEDS: EFAVIRENZ 600 MG TAB PO SCH (20:43)
[2020-09-14] MEDS: TRAZODONE 50MG TABLET PO PRN (22:23)
[2020-09-15 01:48] VITALS: BP 94/52
[2020-09-15 05:50] VITALS: BP 105/62
[2020-09-15] MEDS: ASPIRIN 81 MG TABLET CHEW PO SCH (05:52)
[2020-09-15] MEDS: CARVEDILOL 6.25 MG TABLET PO SCH ×2 (05:52→17:26)
[2020-09-15] MEDS: HYDROcodone/APAP 5/325 TABLET PO PRN (05:58)
[2020-09-15] MEDS: SENNA/DOCUSATE TABLET PO SCH (07:09)
[2020-09-15 07:16] VITALS: BP 93/59
[2020-09-15] MEDS: CLOPIDOGREL 75 MG TABLET PO SCH (07:50)
[2020-09-15] MEDS: CYANOCOBALAMIN 1,000 MCG TABLET PO SCH (07:50)
[2020-09-15] MEDS: LISINOPRIL 5 MG TABLET PO SCH (07:51)
[2020-09-15 13:46] VITALS: BP 99/62
[2020-09-15 17:23] VITALS: BP 104/64
[2020-09-15 18:53] VITALS: BP 96/57
[2020-09-15] MEDS: ATORVASTATIN 40 MG TABLET PO SCH (20:29)
[2020-09-15] MEDS: EFAVIRENZ 600 MG TAB PO SCH (20:29)
[2020-09-15] MEDS: EMTRICITABINE/TENOFOVIR 200 MG/300 MG TABLET PO SCH (20:29)
[2020-09-15] MEDS: ENOXAPARIN 40 MG/0.4 ML SQ SCH (20:30)
[2020-09-16] MEDS: TRAZODONE 50MG TABLET PO PRN (00:14)
[2020-09-16 01:14] VITALS: BP 115/67
[2020-09-16 05:52] VITALS: BP 104/58
[2020-09-16] MEDS: CARVEDILOL 6.25 MG TABLET PO SCH ×3 (05:55→18:25)
[2020-09-16] MEDS: ASPIRIN 81 MG TABLET CHEW PO SCH (05:55)
[2020-09-16 06:42] VITALS: BP 95/59
[2020-09-16] MEDS: CYANOCOBALAMIN 1,000 MCG TABLET PO SCH (08:37)
[2020-09-16] MEDS: SENNA/DOCUSATE TABLET PO SCH (08:38)
[2020-09-16] MEDS: CLOPIDOGREL 75 MG TABLET PO SCH (08:38)
[2020-09-16] MEDS: LISINOPRIL 5 MG TABLET PO SCH (08:41)
[2020-09-16 12:06] VITALS: BP 95/55
[2020-09-16 18:25] VITALS: BP 90/52
[2020-09-16] MEDS: ATORVASTATIN 40 MG TABLET PO SCH (21:16)
[2020-09-16] MEDS: EMTRICITABINE/TENOFOVIR 200 MG/300 MG TABLET PO SCH (21:16)
[2020-09-16] MEDS: EFAVIRENZ 600 MG TAB PO SCH (21:16)
[2020-09-16] MEDS: ENOXAPARIN 40 MG/0.4 ML SQ SCH (21:17)
[2020-09-16 21:19] VITALS: BP 109/67
[2020-09-17 00:10] VITALS: BP 94/60
[2020-09-17] MEDS: ASPIRIN 81 MG TABLET CHEW PO SCH (04:31)
[2020-09-17] MEDS: CARVEDILOL 6.25 MG TABLET PO SCH ×2 (04:31→17:56)
[2020-09-17 07:52] VITALS: BP 95/59
[2020-09-17] MEDS: SENNA/DOCUSATE TABLET PO SCH (08:34)
[2020-09-17] MEDS: CLOPIDOGREL 75 MG TABLET PO SCH (08:35)
[2020-09-17] MEDS: CYANOCOBALAMIN 1,000 MCG TABLET PO SCH (08:35)
[2020-09-17] MEDS: LISINOPRIL 5 MG TABLET PO SCH (08:35)
[2020-09-17 13:07] VITALS: BP 103/65
[2020-09-17 16:55] VITALS: BP 98/59
[2020-09-17] MEDS ORDERED: CARVEDILOL 6.25 MG TABLET PO SCH (18:00)
[2020-09-17 18:39] VITALS: BP 108/61
[2020-09-17] MEDS: ATORVASTATIN 40 MG TABLET PO SCH (20:14)
[2020-09-17] MEDS: EFAVIRENZ 600 MG TAB PO SCH (20:14)
[2020-09-17] MEDS: EMTRICITABINE/TENOFOVIR 200 MG/300 MG TABLET PO SCH (20:14)
[2020-09-17] MEDS: ENOXAPARIN 40 MG/0.4 ML SQ SCH (20:15)
[2020-09-18 00:29] VITALS: BP 114/61
[2020-09-18 05:09] VITALS: BP 118/69
[2020-09-18] MEDS: CARVEDILOL 6.25 MG TABLET PO SCH ×2 (05:10→17:46)
[2020-09-18] MEDS: ASPIRIN 81 MG TABLET CHEW PO SCH (05:11)
[2020-09-18 07:57] VITALS: BP 123/65
[2020-09-18] MEDS: CLOPIDOGREL 75 MG TABLET PO SCH (07:59)
[2020-09-18] MEDS: CYANOCOBALAMIN 1,000 MCG TABLET PO SCH (07:59)
[2020-09-18] MEDS: LISINOPRIL 5 MG TABLET PO SCH (07:59)
[2020-09-18] MEDS: SENNA/DOCUSATE TABLET PO SCH (08:00)
[2020-09-18] MEDS ORDERED: LISINOPRIL 5 MG TABLET PO SCH (09:00)
[2020-09-18 13:36] VITALS: BP 122/74
[2020-09-18 17:44] VITALS: BP 114/70
[2020-09-18 19:14] VITALS: BP 105/66
[2020-09-18] MEDS: EFAVIRENZ 600 MG TAB PO SCH (20:09)
[2020-09-18] MEDS: ATORVASTATIN 40 MG TABLET PO SCH (20:09)
[2020-09-18] MEDS: EMTRICITABINE/TENOFOVIR 200 MG/300 MG TABLET PO SCH (20:09)
[2020-09-18] MEDS: ENOXAPARIN 40 MG/0.4 ML SQ SCH (20:09)
[2020-09-19] VITALS (7 sets, daily range): BP systolic 91–117; BP diastolic 51–74
[2020-09-19] MEDS: HYDROcodone/APAP 5/325 TABLET PO PRN (01:41)
[2020-09-19] MEDS: ASPIRIN 81 MG TABLET CHEW PO SCH (05:26)
[2020-09-19] MEDS: CARVEDILOL 6.25 MG TABLET PO SCH ×2 (05:26→16:57)
[2020-09-19] MEDS: SENNA/DOCUSATE TABLET PO SCH (08:20)
[2020-09-19] MEDS: CYANOCOBALAMIN 1,000 MCG TABLET PO SCH (08:20)
[2020-09-19] MEDS: CLOPIDOGREL 75 MG TABLET PO SCH (08:21)
[2020-09-19] MEDS: LISINOPRIL 5 MG TABLET PO SCH (08:21)
[2020-09-19] MEDS: ENOXAPARIN 40 MG/0.4 ML SQ SCH (20:54)
[2020-09-19] MEDS: EMTRICITABINE/TENOFOVIR 200 MG/300 MG TABLET PO SCH (20:55)
[2020-09-19] MEDS: ATORVASTATIN 40 MG TABLET PO SCH (20:55)
[2020-09-19] MEDS: EFAVIRENZ 600 MG TAB PO SCH (20:55)
[2020-09-20 01:05] VITALS: BP 125/75
[2020-09-20] MEDS: ASPIRIN 81 MG TABLET CHEW PO SCH (05:26)
[2020-09-20] MEDS: CARVEDILOL 6.25 MG TABLET PO SCH ×2 (05:26→17:57)
[2020-09-20 05:28] VITALS: BP 127/75
[2020-09-20 08:35] VITALS: BP 106/67
[2020-09-20] MEDS: CYANOCOBALAMIN 1,000 MCG TABLET PO SCH (08:36)
[2020-09-20] MEDS: LISINOPRIL 5 MG TABLET PO SCH (08:37)
[2020-09-20] MEDS: CLOPIDOGREL 75 MG TABLET PO SCH (08:37)
[2020-09-20] MEDS: SENNA/DOCUSATE TABLET PO SCH (08:37)
[2020-09-20 15:00] VITALS: BP 118/72
[2020-09-20 17:56] VITALS: BP 104/64
[2020-09-20] MEDS: EFAVIRENZ 600 MG TAB PO SCH (20:20)
[2020-09-20] MEDS: EMTRICITABINE/TENOFOVIR 200 MG/300 MG TABLET PO SCH (20:20)
[2020-09-20] MEDS: ENOXAPARIN 40 MG/0.4 ML SQ SCH (20:20)
[2020-09-20] MEDS: ATORVASTATIN 40 MG TABLET PO SCH (20:21)
[2020-09-20 20:25] VITALS: BP_SYST 103; BP_SYST 73; BP_DIAS 64
[2020-09-21 02:13] VITALS: BP 98/61
[2020-09-21] MEDS: CARVEDILOL 6.25 MG TABLET PO SCH ×3 (06:00→07:49)
[2020-09-21 06:10] VITALS: BP 103/58
[2020-09-21] MEDS: ASPIRIN 81 MG TABLET CHEW PO SCH (06:10)
[2020-09-21] MEDS: LISINOPRIL 5 MG TABLET PO SCH (07:49)
[2020-09-21] MEDS: CYANOCOBALAMIN 1,000 MCG TABLET PO SCH (07:55)
[2020-09-21] MEDS: CLOPIDOGREL 75 MG TABLET PO SCH (07:55)
[2020-09-21] MEDS: SENNA/DOCUSATE TABLET PO SCH (07:56)
[2020-09-21 11:01] VITALS: BP 106/70
[2020-09-21 12:36] VITALS: BP 106/63
[2020-09-21 19:50] VITALS: BP 108/65
[2020-09-21] MEDS: EFAVIRENZ 600 MG TAB PO SCH (20:07)
[2020-09-21] MEDS: MIRTAZAPINE 15 MG TABLET PO SCH (20:07)
[2020-09-21] MEDS: ATORVASTATIN 40 MG TABLET PO SCH (20:07)
[2020-09-21] MEDS: ENOXAPARIN 40 MG/0.4 ML SQ SCH (20:07)
[2020-09-21] MEDS: EMTRICITABINE/TENOFOVIR 200 MG/300 MG TABLET PO SCH (20:07)
[2020-09-22 02:14] VITALS: BP 126/69
[2020-09-22 05:34] LABS: CREATININE 0.85 mg/dL (0.7-1.3)
[2020-09-22 05:53] VITALS: BP 129/74
[2020-09-22] MEDS: ASPIRIN 81 MG TABLET CHEW PO SCH (05:54)
[2020-09-22] MEDS: CARVEDILOL 6.25 MG TABLET PO SCH ×2 (05:54→17:21)
[2020-09-22 06:53] VITALS: BP 101/64
[2020-09-22] MEDS: SENNA/DOCUSATE TABLET PO SCH (09:00)
[2020-09-22] MEDS: CLOPIDOGREL 75 MG TABLET PO SCH (09:01)
[2020-09-22] MEDS: CYANOCOBALAMIN 1,000 MCG TABLET PO SCH (09:01)
[2020-09-22] MEDS: LISINOPRIL 5 MG TABLET PO SCH (09:01)
[2020-09-22 12:48] VITALS: BP 103/73
[2020-09-22 20:07] VITALS: BP 94/60
[2020-09-22] MEDS: ATORVASTATIN 40 MG TABLET PO SCH (20:11)
[2020-09-22] MEDS: EMTRICITABINE/TENOFOVIR 200 MG/300 MG TABLET PO SCH (20:11)
[2020-09-22] MEDS: EFAVIRENZ 600 MG TAB PO SCH (20:11)
[2020-09-22] MEDS: MIRTAZAPINE 15 MG TABLET PO SCH (20:11)
[2020-09-22] MEDS: ENOXAPARIN 40 MG/0.4 ML SQ SCH (20:11)
[2020-09-23 01:55] VITALS: BP 92/60
[2020-09-23 05:44] VITALS: BP 93/57
[2020-09-23] MEDS: ASPIRIN 81 MG TABLET CHEW PO SCH (05:44)
[2020-09-23] MEDS: CARVEDILOL 6.25 MG TABLET PO SCH ×2 (05:44→17:41)
[2020-09-23 08:14] VITALS: BP 120/67
[2020-09-23] MEDS: CYANOCOBALAMIN 1,000 MCG TABLET PO SCH (08:52)
[2020-09-23] MEDS: SENNA/DOCUSATE TABLET PO SCH ×2 (08:53→08:54)
[2020-09-23] MEDS: CLOPIDOGREL 75 MG TABLET PO SCH (08:53)
[2020-09-23] MEDS: LISINOPRIL 5 MG TABLET PO SCH (08:53)
[2020-09-23 14:13] VITALS: BP 102/64
[2020-09-23 19:58] VITALS: BP 100/60
[2020-09-23] MEDS: ATORVASTATIN 40 MG TABLET PO SCH (19:59)
[2020-09-23] MEDS: EMTRICITABINE/TENOFOVIR 200 MG/300 MG TABLET PO SCH (19:59)
[2020-09-23] MEDS: EFAVIRENZ 600 MG TAB PO SCH (19:59)
[2020-09-23] MEDS: MIRTAZAPINE 15 MG TABLET PO SCH (19:59)
[2020-09-23] MEDS: ENOXAPARIN 40 MG/0.4 ML SQ SCH (20:00)
[2020-09-24 00:17] VITALS: BP 108/69
[2020-09-24 05:34] VITALS: BP 101/68
[2020-09-24] MEDS: CARVEDILOL 6.25 MG TABLET PO SCH ×2 (05:35→16:50)
[2020-09-24] MEDS: ASPIRIN 81 MG TABLET CHEW PO SCH (05:35)
[2020-09-24 07:22] VITALS: BP 121/75
[2020-09-24] MEDS: CYANOCOBALAMIN 1,000 MCG TABLET PO SCH (08:32)
[2020-09-24] MEDS: CLOPIDOGREL 75 MG TABLET PO SCH (08:32)
[2020-09-24] MEDS: SENNA/DOCUSATE TABLET PO SCH (08:32)
[2020-09-24] MEDS: LISINOPRIL 5 MG TABLET PO SCH (08:32)
[2020-09-24 13:32] VITALS: BP 98/60
[2020-09-24] MEDS: ENOXAPARIN 40 MG/0.4 ML SQ SCH (21:00)
[2020-09-24 21:03] VITALS: BP 105/67
[2020-09-24] MEDS: MIRTAZAPINE 15 MG TABLET PO SCH (21:04)
[2020-09-24] MEDS: ATORVASTATIN 40 MG TABLET PO SCH (21:04)
[2020-09-24] MEDS: EFAVIRENZ 600 MG TAB PO SCH (21:04)
[2020-09-24] MEDS: EMTRICITABINE/TENOFOVIR 200 MG/300 MG TABLET PO SCH (21:04)
[2020-09-25 01:03] VITALS: BP 95/64
[2020-09-25 05:27] VITALS: BP 145/83
[2020-09-25] MEDS: ASPIRIN 81 MG TABLET CHEW PO SCH (05:27)
[2020-09-25] MEDS: CARVEDILOL 6.25 MG TABLET PO SCH ×2 (05:27→17:36)
[2020-09-25 08:57] VITALS: BP 95/62
[2020-09-25] MEDS: LISINOPRIL 5 MG TABLET PO SCH (09:00)
[2020-09-25] MEDS: SENNA/DOCUSATE TABLET PO SCH (09:21)
[2020-09-25] MEDS: CLOPIDOGREL 75 MG TABLET PO SCH (09:21)
[2020-09-25] MEDS: CYANOCOBALAMIN 1,000 MCG TABLET PO SCH (09:22)
[2020-09-25 15:22] VITALS: BP 101/64
[2020-09-25 19:57] VITALS: BP 107/69
[2020-09-25] MEDS: ENOXAPARIN 40 MG/0.4 ML SQ SCH (21:00)
[2020-09-25] MEDS: EFAVIRENZ 600 MG TAB PO SCH (21:05)
[2020-09-25] MEDS: EMTRICITABINE/TENOFOVIR 200 MG/300 MG TABLET PO SCH (21:05)
[2020-09-25] MEDS: ATORVASTATIN 40 MG TABLET PO SCH (21:08)
[2020-09-25] MEDS: MIRTAZAPINE 15 MG TABLET PO SCH (21:08)
[2020-09-26 01:49] VITALS: BP 112/69
[2020-09-26] MEDS: ASPIRIN 81 MG TABLET CHEW PO SCH (05:56)
[2020-09-26] MEDS: CARVEDILOL 6.25 MG TABLET PO SCH ×2 (05:56→18:00)
[2020-09-26 06:19] LABS: CREATININE 0.92 mg/dL (0.7-1.3)
[2020-09-26 07:08] VITALS: BP 132/77
[2020-09-26] MEDS: CYANOCOBALAMIN 1,000 MCG TABLET PO SCH (08:35)
[2020-09-26] MEDS: CLOPIDOGREL 75 MG TABLET PO SCH (08:35)
[2020-09-26] MEDS: SENNA/DOCUSATE TABLET PO SCH (08:35)
[2020-09-26] MEDS: LISINOPRIL 5 MG TABLET PO SCH (08:36)
[2020-09-26 13:32] VITALS: BP 102/63
[2020-09-26 18:08] VITALS: BP 97/63
[2020-09-26] MEDS: MIRTAZAPINE 15 MG TABLET PO SCH (20:36)
[2020-09-26] MEDS: EFAVIRENZ 600 MG TAB PO SCH (20:36)
[2020-09-26] MEDS: EMTRICITABINE/TENOFOVIR 200 MG/300 MG TABLET PO SCH (20:36)
[2020-09-26] MEDS: ENOXAPARIN 40 MG/0.4 ML SQ SCH (20:36)
[2020-09-26] MEDS: ATORVASTATIN 40 MG TABLET PO SCH (20:36)
[2020-09-26] MEDS: TRAZODONE 50MG TABLET PO PRN (20:41)
[2020-09-27 01:19] VITALS: BP 100/63
[2020-09-27 06:10] VITALS: BP 101/59
[2020-09-27] MEDS: CARVEDILOL 6.25 MG TABLET PO SCH ×2 (06:11→17:55)
[2020-09-27] MEDS: ASPIRIN 81 MG TABLET CHEW PO SCH (06:11)
[2020-09-27 07:00] VITALS: BP 113/71
[2020-09-27] MEDS: SENNA/DOCUSATE TABLET PO SCH (10:01)
[2020-09-27] MEDS: CLOPIDOGREL 75 MG TABLET PO SCH (10:01)
[2020-09-27] MEDS: CYANOCOBALAMIN 1,000 MCG TABLET PO SCH (10:01)
[2020-09-27] MEDS: LISINOPRIL 5 MG TABLET PO SCH (10:01)
[2020-09-27 14:11] VITALS: BP 105/64
[2020-09-27 17:54] VITALS: BP_SYST 101; BP_DIAS 57; BP_DIAS 64
[2020-09-27 20:16] VITALS: BP 95/58
[2020-09-27] MEDS: ATORVASTATIN 40 MG TABLET PO SCH (20:18)
[2020-09-27] MEDS: MIRTAZAPINE 15 MG TABLET PO SCH (20:18)
[2020-09-27] MEDS: EFAVIRENZ 600 MG TAB PO SCH (20:18)
[2020-09-27] MEDS: EMTRICITABINE/TENOFOVIR 200 MG/300 MG TABLET PO SCH (20:18)
[2020-09-27] MEDS: ENOXAPARIN 40 MG/0.4 ML SQ SCH (20:21)
[2020-09-28 00:59] VITALS: BP 105/64
[2020-09-28 05:12] VITALS: BP 135/73
[2020-09-28] MEDS: ASPIRIN 81 MG TABLET CHEW PO SCH (05:13)
[2020-09-28] MEDS: CARVEDILOL 6.25 MG TABLET PO SCH ×2 (05:14→17:39)
[2020-09-28 07:55] VITALS: BP 120/71
[2020-09-28] MEDS: LISINOPRIL 5 MG TABLET PO SCH (10:06)
[2020-09-28] MEDS: CYANOCOBALAMIN 1,000 MCG TABLET PO SCH (10:06)
[2020-09-28] MEDS: SENNA/DOCUSATE TABLET PO SCH (10:07)
[2020-09-28] MEDS: CLOPIDOGREL 75 MG TABLET PO SCH (10:07)
[2020-09-28 13:21] VITALS: BP 97/57
[2020-09-28 18:48] VITALS: BP 99/52
[2020-09-28] MEDS: MIRTAZAPINE 15 MG TABLET PO SCH (20:08)
[2020-09-28] MEDS: ENOXAPARIN 40 MG/0.4 ML SQ SCH (20:08)
[2020-09-28] MEDS: ATORVASTATIN 40 MG TABLET PO SCH (20:09)
[2020-09-28] MEDS: EFAVIRENZ 600 MG TAB PO SCH (20:09)
[2020-09-28] MEDS: EMTRICITABINE/TENOFOVIR 200 MG/300 MG TABLET PO SCH (20:09)
[2020-09-29 00:36] VITALS: BP 95/56
[2020-09-29 05:35] VITALS: BP 99/58
[2020-09-29] MEDS: ASPIRIN 81 MG TABLET CHEW PO SCH (05:37)
[2020-09-29] MEDS: CARVEDILOL 6.25 MG TABLET PO SCH ×2 (05:42→17:32)
[2020-09-29 07:32] VITALS: BP 153/91
[2020-09-29 08:16] VITALS: BP 108/69
[2020-09-29] MEDS: LISINOPRIL 5 MG TABLET PO SCH (08:24)
[2020-09-29] MEDS: CLOPIDOGREL 75 MG TABLET PO SCH (08:27)
[2020-09-29] MEDS: SENNA/DOCUSATE TABLET PO SCH (08:27)
[2020-09-29] MEDS: CYANOCOBALAMIN 1,000 MCG TABLET PO SCH (08:27)
[2020-09-29 13:07] VITALS: BP 98/61
[2020-09-29 19:32] VITALS: BP 95/62
[2020-09-29] MEDS: ENOXAPARIN 40 MG/0.4 ML SQ SCH (20:12)
[2020-09-29] MEDS: EMTRICITABINE/TENOFOVIR 200 MG/300 MG TABLET PO SCH (20:12)
[2020-09-29] MEDS: MIRTAZAPINE 15 MG TABLET PO SCH (20:12)
[2020-09-29] MEDS: EFAVIRENZ 600 MG TAB PO SCH (20:12)
[2020-09-29] MEDS: ATORVASTATIN 40 MG TABLET PO SCH (20:12)
[2020-09-30 01:06] VITALS: BP 107/60
[2020-09-30 06:15] VITALS: BP 101/66
[2020-09-30] MEDS: CARVEDILOL 6.25 MG TABLET PO SCH ×2 (06:15→18:00)
[2020-09-30] MEDS: ASPIRIN 81 MG TABLET CHEW PO SCH (06:15)
[2020-09-30] MEDS: CLOPIDOGREL 75 MG TABLET PO SCH (07:31)
[2020-09-30] MEDS: CYANOCOBALAMIN 1,000 MCG TABLET PO SCH (07:31)
[2020-09-30] MEDS: LISINOPRIL 5 MG TABLET PO SCH (07:31)
[2020-09-30] MEDS: SENNA/DOCUSATE TABLET PO SCH (07:32)
[2020-09-30 12:35] VITALS: BP 109/70
[2020-09-30 19:37] VITALS: BP 100/65
[2020-09-30] MEDS: MIRTAZAPINE 15 MG TABLET PO SCH (19:40)
[2020-09-30] MEDS: EFAVIRENZ 600 MG TAB PO SCH (19:40)
[2020-09-30] MEDS: ATORVASTATIN 40 MG TABLET PO SCH (19:40)
[2020-09-30] MEDS: EMTRICITABINE/TENOFOVIR 200 MG/300 MG TABLET PO SCH (19:40)
[2020-09-30] MEDS: ENOXAPARIN 40 MG/0.4 ML SQ SCH (19:43)
[2020-09-30] MEDS: TRAZODONE 50MG TABLET PO PRN (19:43)
[2020-10-01 01:19] VITALS: BP 123/75
[2020-10-01 05:35] VITALS: BP 113/71
[2020-10-01] MEDS: ASPIRIN 81 MG TABLET CHEW PO SCH (05:36)
[2020-10-01] MEDS: CARVEDILOL 6.25 MG TABLET PO SCH ×2 (05:37→17:15)
[2020-10-01 07:07] VITALS: BP 122/77
[2020-10-01] MEDS: CLOPIDOGREL 75 MG TABLET PO SCH (08:56)
[2020-10-01] MEDS: LISINOPRIL 5 MG TABLET PO SCH (08:57)
[2020-10-01] MEDS: CYANOCOBALAMIN 1,000 MCG TABLET PO SCH (08:57)
[2020-10-01] MEDS: SENNA/DOCUSATE TABLET PO SCH (09:00)
[2020-10-01 15:08] VITALS: BP 117/75
[2020-10-01 17:16] VITALS: BP 118/76
[2020-10-01 19:19] VITALS: BP 101/61
[2020-10-01] MEDS: ENOXAPARIN 40 MG/0.4 ML SQ SCH (19:53)
[2020-10-01] MEDS: EMTRICITABINE/TENOFOVIR 200 MG/300 MG TABLET PO SCH (19:53)
[2020-10-01] MEDS: EFAVIRENZ 600 MG TAB PO SCH (19:53)
[2020-10-01] MEDS: ATORVASTATIN 40 MG TABLET PO SCH (19:53)
[2020-10-01] MEDS: MIRTAZAPINE 15 MG TABLET PO SCH (19:53)
[2020-10-02 01:43] VITALS: BP 98/63
[2020-10-02] MEDS: ACETAMINOPHEN 325 MG TABLET PO PRN (03:21)
[2020-10-02 05:50] VITALS: BP 115/74
[2020-10-02] MEDS: ASPIRIN 81 MG TABLET CHEW PO SCH (05:50)
[2020-10-02] MEDS: CARVEDILOL 6.25 MG TABLET PO SCH ×2 (05:53→16:54)
[2020-10-02 07:18] VITALS: BP 119/72
[2020-10-02] MEDS: LISINOPRIL 5 MG TABLET PO SCH (08:59)
[2020-10-02] MEDS: SENNA/DOCUSATE TABLET PO SCH (09:00)
[2020-10-02] MEDS: CLOPIDOGREL 75 MG TABLET PO SCH (09:04)
[2020-10-02] MEDS: CYANOCOBALAMIN 1,000 MCG TABLET PO SCH (09:05)
[2020-10-02 14:06] VITALS: BP 97/61
[2020-10-02 16:54] VITALS: BP 118/72
[2020-10-02 19:07] VITALS: BP 103/68
[2020-10-02] MEDS: ATORVASTATIN 40 MG TABLET PO SCH (19:49)
[2020-10-02] MEDS: MIRTAZAPINE 15 MG TABLET PO SCH (19:49)
[2020-10-02] MEDS: ENOXAPARIN 40 MG/0.4 ML SQ SCH (19:49)
[2020-10-02] MEDS: EFAVIRENZ 600 MG TAB PO SCH (19:49)
[2020-10-02] MEDS: EMTRICITABINE/TENOFOVIR 200 MG/300 MG TABLET PO SCH (19:49)
[2020-10-03 01:37] VITALS: BP 97/64
[2020-10-03] MEDS: ASPIRIN 81 MG TABLET CHEW PO SCH (05:49)
[2020-10-03] MEDS: CARVEDILOL 6.25 MG TABLET PO SCH ×2 (05:49→17:26)
[2020-10-03 07:51] VITALS: BP 125/76
[2020-10-03] MEDS: SENNA/DOCUSATE TABLET PO SCH (09:46)
[2020-10-03] MEDS: LISINOPRIL 5 MG TABLET PO SCH (09:46)
[2020-10-03] MEDS: CLOPIDOGREL 75 MG TABLET PO SCH (09:47)
[2020-10-03] MEDS: CYANOCOBALAMIN 1,000 MCG TABLET PO SCH (09:47)
[2020-10-03 13:06] VITALS: BP 101/61
[2020-10-03 20:29] VITALS: BP 96/60
[2020-10-03] MEDS: ATORVASTATIN 40 MG TABLET PO SCH (20:34)
[2020-10-03] MEDS: EMTRICITABINE/TENOFOVIR 200 MG/300 MG TABLET PO SCH (20:35)
[2020-10-03] MEDS: ENOXAPARIN 40 MG/0.4 ML SQ SCH (20:36)
[2020-10-03] MEDS: EFAVIRENZ 600 MG TAB PO SCH (20:36)
[2020-10-03] MEDS: MIRTAZAPINE 15 MG TABLET PO SCH (20:39)
[2020-10-04 01:38] VITALS: BP 110/67
[2020-10-04] MEDS: CARVEDILOL 6.25 MG TABLET PO SCH ×2 (06:00→18:00)
[2020-10-04 06:07] VITALS: BP 93/59
[2020-10-04] MEDS: ASPIRIN 81 MG TABLET CHEW PO SCH (06:09)
[2020-10-04 07:47] VITALS: BP 123/73
[2020-10-04] MEDS: CLOPIDOGREL 75 MG TABLET PO SCH (08:49)
[2020-10-04] MEDS: CYANOCOBALAMIN 1,000 MCG TABLET PO SCH (08:49)
[2020-10-04] MEDS: LISINOPRIL 5 MG TABLET PO SCH (08:49)
[2020-10-04] MEDS: SENNA/DOCUSATE TABLET PO SCH (08:50)
[2020-10-04 12:43] VITALS: BP 102/60
[2020-10-04 18:14] VITALS: BP 94/60
[2020-10-04] MEDS: ENOXAPARIN 40 MG/0.4 ML SQ SCH (21:00)
[2020-10-04] MEDS: EMTRICITABINE/TENOFOVIR 200 MG/300 MG TABLET PO SCH (21:04)
[2020-10-04] MEDS: EFAVIRENZ 600 MG TAB PO SCH (21:04)
[2020-10-04] MEDS: MIRTAZAPINE 15 MG TABLET PO SCH (21:05)
[2020-10-04] MEDS: ATORVASTATIN 40 MG TABLET PO SCH (21:05)
[2020-10-05 00:56] VITALS: BP 108/84
[2020-10-05 05:22] VITALS: BP 103/66
[2020-10-05] MEDS: CARVEDILOL 6.25 MG TABLET PO SCH ×2 (05:23→18:00)
[2020-10-05] MEDS: ASPIRIN 81 MG TABLET CHEW PO SCH (05:23)
[2020-10-05 05:42] LABS: CREATININE 0.94 mg/dL (0.7-1.3)
[2020-10-05 07:23] VITALS: BP 123/76
[2020-10-05] MEDS: CLOPIDOGREL 75 MG TABLET PO SCH (08:47)
[2020-10-05] MEDS: SENNA/DOCUSATE TABLET PO SCH (08:48)
[2020-10-05] MEDS: LISINOPRIL 5 MG TABLET PO SCH (08:48)
[2020-10-05] MEDS: CYANOCOBALAMIN 1,000 MCG TABLET PO SCH (08:49)
[2020-10-05 13:33] VITALS: BP 112/69
[2020-10-05 18:19] VITALS: BP 96/61
[2020-10-05] MEDS: EFAVIRENZ 600 MG TAB PO SCH (19:36)
[2020-10-05] MEDS: MIRTAZAPINE 15 MG TABLET PO SCH (19:36)
[2020-10-05] MEDS: EMTRICITABINE/TENOFOVIR 200 MG/300 MG TABLET PO SCH (19:36)
[2020-10-05] MEDS: ENOXAPARIN 40 MG/0.4 ML SQ SCH (19:36)
[2020-10-05] MEDS: ATORVASTATIN 40 MG TABLET PO SCH (19:36)
[2020-10-05 19:38] VITALS: BP 104/62
[2020-10-06 01:09] VITALS: BP 113/68
[2020-10-06 05:30] VITALS: BP 119/71
[2020-10-06] MEDS: ASPIRIN 81 MG TABLET CHEW PO SCH (05:30)
[2020-10-06] MEDS: CARVEDILOL 6.25 MG TABLET PO SCH ×2 (05:30→17:44)
[2020-10-06 07:40] VITALS: BP 95/61
[2020-10-06] MEDS: LISINOPRIL 5 MG TABLET PO SCH (08:26)
[2020-10-06] MEDS: CYANOCOBALAMIN 1,000 MCG TABLET PO SCH (08:26)
[2020-10-06] MEDS: SENNA/DOCUSATE TABLET PO SCH (08:26)
[2020-10-06] MEDS: CLOPIDOGREL 75 MG TABLET PO SCH (08:27)
[2020-10-06 13:22] VITALS: BP 117/72
[2020-10-06 19:08] VITALS: BP 114/74
[2020-10-06] MEDS: EFAVIRENZ 600 MG TAB PO SCH (20:40)
[2020-10-06] MEDS: EMTRICITABINE/TENOFOVIR 200 MG/300 MG TABLET PO SCH (20:40)
[2020-10-06] MEDS: MIRTAZAPINE 15 MG TABLET PO SCH (20:40)
[2020-10-06] MEDS: ATORVASTATIN 40 MG TABLET PO SCH (20:40)
[2020-10-06] MEDS: ENOXAPARIN 40 MG/0.4 ML SQ SCH (20:40)
[2020-10-07 00:49] VITALS: BP 123/70
[2020-10-07] MEDS: ASPIRIN 81 MG TABLET CHEW PO SCH (05:28)
[2020-10-07 05:29] VITALS: BP 111/70
[2020-10-07] MEDS: CARVEDILOL 6.25 MG TABLET PO SCH ×2 (05:29→18:14)
[2020-10-07 07:50] VITALS: BP 126/76
[2020-10-07] MEDS: CLOPIDOGREL 75 MG TABLET PO SCH (08:21)
[2020-10-07] MEDS: SENNA/DOCUSATE TABLET PO SCH (08:22)
[2020-10-07] MEDS: LISINOPRIL 5 MG TABLET PO SCH (08:22)
[2020-10-07] MEDS: CYANOCOBALAMIN 1,000 MCG TABLET PO SCH (09:00)
[2020-10-07 13:30] VITALS: BP 98/61
[2020-10-07 18:13] VITALS: BP 97/48
[2020-10-07 19:53] VITALS: BP 102/56
[2020-10-07] MEDS: MIRTAZAPINE 15 MG TABLET PO SCH (20:30)
[2020-10-07] MEDS: EMTRICITABINE/TENOFOVIR 200 MG/300 MG TABLET PO SCH (20:31)
[2020-10-07] MEDS: ATORVASTATIN 40 MG TABLET PO SCH (20:32)
[2020-10-07] MEDS: EFAVIRENZ 600 MG TAB PO SCH (20:32)
[2020-10-07] MEDS: ENOXAPARIN 40 MG/0.4 ML SQ SCH (20:33)
[2020-10-08] VITALS (7 sets, daily range): BP systolic 98–125; BP diastolic 50–75
[2020-10-08] MEDS: ASPIRIN 81 MG TABLET CHEW PO SCH (05:26)
[2020-10-08] MEDS: CARVEDILOL 6.25 MG TABLET PO SCH ×2 (05:28→18:14)
[2020-10-08 06:28] LABS: CREATININE 0.97 mg/dL (0.7-1.3)
[2020-10-08] MEDS: CLOPIDOGREL 75 MG TABLET PO SCH (09:23)
[2020-10-08] MEDS: SENNA/DOCUSATE TABLET PO SCH ×2 (09:23→09:33)
[2020-10-08] MEDS: LISINOPRIL 5 MG TABLET PO SCH (09:23)
[2020-10-08] MEDS: BUPROPION SR 150 MG TABLET PO SCH (09:23)
[2020-10-08] MEDS: CYANOCOBALAMIN 1,000 MCG TABLET PO SCH (09:33)
[2020-10-08] MEDS: ENOXAPARIN 40 MG/0.4 ML SQ SCH (20:22)
[2020-10-08] MEDS: EFAVIRENZ 600 MG TAB PO SCH (20:25)
[2020-10-08] MEDS: ATORVASTATIN 40 MG TABLET PO SCH (20:25)
[2020-10-08] MEDS: MIRTAZAPINE 15 MG TABLET PO SCH (20:25)
[2020-10-08] MEDS: EMTRICITABINE/TENOFOVIR 200 MG/300 MG TABLET PO SCH (20:25)
[2020-10-09] VITALS (7 sets, daily range): BP systolic 97–108; BP diastolic 61–69
[2020-10-09] MEDS: ASPIRIN 81 MG TABLET CHEW PO SCH (05:10)
[2020-10-09] MEDS: CARVEDILOL 6.25 MG TABLET PO SCH ×2 (05:10→18:39)
[2020-10-09] MEDS: CYANOCOBALAMIN 1,000 MCG TABLET PO SCH (09:08)
[2020-10-09] MEDS: SENNA/DOCUSATE TABLET PO SCH (09:08)
[2020-10-09] MEDS: BUPROPION SR 150 MG TABLET PO SCH (09:09)
[2020-10-09] MEDS: CLOPIDOGREL 75 MG TABLET PO SCH (09:09)
[2020-10-09] MEDS: LISINOPRIL 5 MG TABLET PO SCH (09:11)
[2020-10-09] MEDS: ENOXAPARIN 40 MG/0.4 ML SQ SCH (20:45)
[2020-10-09] MEDS: EMTRICITABINE/TENOFOVIR 200 MG/300 MG TABLET PO SCH (20:49)
[2020-10-09] MEDS: EFAVIRENZ 600 MG TAB PO SCH (20:49)
[2020-10-09] MEDS: MIRTAZAPINE 15 MG TABLET PO SCH (20:49)
[2020-10-09] MEDS: ATORVASTATIN 40 MG TABLET PO SCH (20:49)
[2020-10-10 01:48] VITALS: BP 102/62
[2020-10-10] MEDS: ASPIRIN 81 MG TABLET CHEW PO SCH (05:15)
[2020-10-10 05:53] VITALS: BP 106/68
[2020-10-10] MEDS: CARVEDILOL 6.25 MG TABLET PO SCH ×2 (05:53→17:44)
[2020-10-10 07:11] VITALS: BP 103/65
[2020-10-10] MEDS: LISINOPRIL 5 MG TABLET PO SCH (07:28)
[2020-10-10] MEDS: BUPROPION SR 150 MG TABLET PO SCH (08:18)
[2020-10-10] MEDS: SENNA/DOCUSATE TABLET PO SCH (08:18)
[2020-10-10] MEDS: CLOPIDOGREL 75 MG TABLET PO SCH (08:18)
[2020-10-10] MEDS: CYANOCOBALAMIN 1,000 MCG TABLET PO SCH (08:19)
[2020-10-10 15:35] VITALS: BP 119/68
[2020-10-10 17:43] VITALS: BP 100/63
[2020-10-10] MEDS: ENOXAPARIN 40 MG/0.4 ML SQ SCH (20:23)
[2020-10-10] MEDS: ATORVASTATIN 40 MG TABLET PO SCH (20:29)
[2020-10-10] MEDS: MIRTAZAPINE 15 MG TABLET PO SCH (20:29)
[2020-10-10] MEDS: EMTRICITABINE/TENOFOVIR 200 MG/300 MG TABLET PO SCH (20:29)
[2020-10-10] MEDS: EFAVIRENZ 600 MG TAB PO SCH (20:29)
[2020-10-10 21:36] VITALS: BP 110/72
[2020-10-11] VITALS (7 sets, daily range): BP systolic 90–128; BP diastolic 56–79
[2020-10-11 04:48] LABS: CREATININE 0.88 mg/dL (0.7-1.3)
[2020-10-11] MEDS: CARVEDILOL 6.25 MG TABLET PO SCH ×3 (05:59→17:32)
[2020-10-11] MEDS: ASPIRIN 81 MG TABLET CHEW PO SCH (06:02)
[2020-10-11] MEDS: LISINOPRIL 5 MG TABLET PO SCH (09:00)
[2020-10-11] MEDS: CLOPIDOGREL 75 MG TABLET PO SCH (09:03)
[2020-10-11] MEDS: BUPROPION SR 150 MG TABLET PO SCH (09:03)
[2020-10-11] MEDS: CYANOCOBALAMIN 1,000 MCG TABLET PO SCH (09:03)
[2020-10-11] MEDS: SENNA/DOCUSATE TABLET PO SCH (09:03)
[2020-10-11] MEDS: ENOXAPARIN 40 MG/0.4 ML SQ SCH (20:32)
[2020-10-11] MEDS: MIRTAZAPINE 15 MG TABLET PO SCH (20:36)
[2020-10-11] MEDS: ATORVASTATIN 40 MG TABLET PO SCH (20:36)
[2020-10-11] MEDS: EMTRICITABINE/TENOFOVIR 200 MG/300 MG TABLET PO SCH (20:36)
[2020-10-11] MEDS: EFAVIRENZ 600 MG TAB PO SCH (20:36)
[2020-10-12 02:22] VITALS: BP 103/68
[2020-10-12 05:34] VITALS: BP 106/62
[2020-10-12] MEDS: CARVEDILOL 6.25 MG TABLET PO SCH ×2 (05:35→18:00)
[2020-10-12] MEDS: ASPIRIN 81 MG TABLET CHEW PO SCH (05:37)
[2020-10-12 07:30] VITALS: BP 96/56
[2020-10-12] MEDS: LISINOPRIL 5 MG TABLET PO SCH (09:00)
[2020-10-12] MEDS: SENNA/DOCUSATE TABLET PO SCH (10:13)
[2020-10-12] MEDS: CLOPIDOGREL 75 MG TABLET PO SCH (10:13)
[2020-10-12] MEDS: BUPROPION SR 150 MG TABLET PO SCH (10:13)
[2020-10-12] MEDS: CYANOCOBALAMIN 1,000 MCG TABLET PO SCH (10:13)
[2020-10-12 13:30] VITALS: BP 109/58
[2020-10-12 18:19] VITALS: BP 108/68
[2020-10-12 19:38] VITALS: BP 103/64
[2020-10-12] MEDS: ATORVASTATIN 40 MG TABLET PO SCH (20:26)
[2020-10-12] MEDS: MIRTAZAPINE 15 MG TABLET PO SCH (20:26)
[2020-10-12] MEDS: EMTRICITABINE/TENOFOVIR 200 MG/300 MG TABLET PO SCH (20:26)
[2020-10-12] MEDS: EFAVIRENZ 600 MG TAB PO SCH (20:26)
[2020-10-12] MEDS: ENOXAPARIN 40 MG/0.4 ML SQ SCH (20:27)
[2020-10-13 00:18] VITALS: BP 117/73
[2020-10-13 05:59] VITALS: BP 96/58
[2020-10-13] MEDS: ASPIRIN 81 MG TABLET CHEW PO SCH (06:08)
[2020-10-13] MEDS: CARVEDILOL 6.25 MG TABLET PO SCH ×2 (06:09→17:52)
[2020-10-13 07:13] VITALS: BP 105/62
[2020-10-13] MEDS: CYANOCOBALAMIN 1,000 MCG TABLET PO SCH (08:15)
[2020-10-13] MEDS: CLOPIDOGREL 75 MG TABLET PO SCH (08:15)
[2020-10-13] MEDS: LISINOPRIL 5 MG TABLET PO SCH ×2 (08:17→09:00)
[2020-10-13] MEDS: SENNA/DOCUSATE TABLET PO SCH (08:17)
[2020-10-13] MEDS: BUPROPION SR 150 MG TABLET PO SCH (08:18)
[2020-10-13 13:30] VITALS: BP 116/72
[2020-10-13 18:38] VITALS: BP 105/63
[2020-10-13] MEDS: ENOXAPARIN 40 MG/0.4 ML SQ SCH (19:24)
[2020-10-13] MEDS: ATORVASTATIN 40 MG TABLET PO SCH (20:23)
[2020-10-13] MEDS: EMTRICITABINE/TENOFOVIR 200 MG/300 MG TABLET PO SCH (20:23)
[2020-10-13] MEDS: EFAVIRENZ 600 MG TAB PO SCH (20:23)
[2020-10-13] MEDS: MIRTAZAPINE 15 MG TABLET PO SCH (20:23)
[2020-10-14 00:49] VITALS: BP 122/76
[2020-10-14 05:39] LABS: CREATININE 0.99 mg/dL (0.7-1.3)
[2020-10-14] MEDS: ASPIRIN 81 MG TABLET CHEW PO SCH (05:48)
[2020-10-14 05:49] VITALS: BP 91/54
[2020-10-14] MEDS: CARVEDILOL 6.25 MG TABLET PO SCH ×2 (05:49→18:00)
[2020-10-14 07:19] VITALS: BP 102/63
[2020-10-14] MEDS: LISINOPRIL 5 MG TABLET PO SCH ×2 (09:00→09:02)
[2020-10-14] MEDS: BUPROPION SR 150 MG TABLET PO SCH (09:00)
[2020-10-14] MEDS: SENNA/DOCUSATE TABLET PO SCH (09:01)
[2020-10-14] MEDS: CYANOCOBALAMIN 1,000 MCG TABLET PO SCH (09:01)
[2020-10-14] MEDS: CLOPIDOGREL 75 MG TABLET PO SCH (09:02)
[2020-10-14 13:56] VITALS: BP 105/67
[2020-10-14 19:41] VITALS: BP 96/61
[2020-10-14] MEDS: EMTRICITABINE/TENOFOVIR 200 MG/300 MG TABLET PO SCH (21:15)
[2020-10-14] MEDS: ATORVASTATIN 40 MG TABLET PO SCH (21:15)
[2020-10-14] MEDS: EFAVIRENZ 600 MG TAB PO SCH (21:15)
[2020-10-14] MEDS: MIRTAZAPINE 15 MG TABLET PO SCH (21:16)
[2020-10-14] MEDS: ENOXAPARIN 40 MG/0.4 ML SQ SCH (21:16)
[2020-10-15 01:20] VITALS: BP 119/74
[2020-10-15 05:19] VITALS: BP 95/60
[2020-10-15] MEDS: ASPIRIN 81 MG TABLET CHEW PO SCH (05:19)
[2020-10-15] MEDS: CARVEDILOL 6.25 MG TABLET PO SCH ×2 (05:21→18:38)
[2020-10-15 06:21] VITALS: BP 130/80
[2020-10-15 08:50] VITALS: BP 116/64
[2020-10-15] MEDS: SENNA/DOCUSATE TABLET PO SCH (08:50)
[2020-10-15] MEDS: BUPROPION SR 150 MG TABLET PO SCH (08:51)
[2020-10-15] MEDS: CLOPIDOGREL 75 MG TABLET PO SCH (08:51)
[2020-10-15] MEDS: LISINOPRIL 5 MG TABLET PO SCH (08:51)
[2020-10-15] MEDS: CYANOCOBALAMIN 1,000 MCG TABLET PO SCH (08:52)
[2020-10-15 13:02] VITALS: BP 107/68
[2020-10-15 18:37] VITALS: BP 116/60
[2020-10-15] MEDS: ENOXAPARIN 40 MG/0.4 ML SQ SCH (19:30)
[2020-10-15] MEDS: MIRTAZAPINE 15 MG TABLET PO SCH (19:31)
[2020-10-15] MEDS: ATORVASTATIN 40 MG TABLET PO SCH (19:32)
[2020-10-15] MEDS: EFAVIRENZ 600 MG TAB PO SCH (19:32)
[2020-10-15] MEDS: EMTRICITABINE/TENOFOVIR 200 MG/300 MG TABLET PO SCH (20:45)
[2020-10-16] VITALS (7 sets, daily range): BP systolic 100–127; BP diastolic 63–76
[2020-10-16] MEDS: ASPIRIN 81 MG TABLET CHEW PO SCH (05:16)
[2020-10-16] MEDS: CARVEDILOL 6.25 MG TABLET PO SCH ×3 (05:16→18:13)
[2020-10-16] MEDS: SENNA/DOCUSATE TABLET PO SCH (09:18)
[2020-10-16] MEDS: BUPROPION SR 150 MG TABLET PO SCH (09:18)
[2020-10-16] MEDS: CYANOCOBALAMIN 1,000 MCG TABLET PO SCH (09:21)
[2020-10-16] MEDS: CLOPIDOGREL 75 MG TABLET PO SCH (09:22)
[2020-10-16] MEDS: LISINOPRIL 5 MG TABLET PO SCH (09:24)
[2020-10-16] MEDS: EMTRICITABINE/TENOFOVIR 200 MG/300 MG TABLET PO SCH (21:15)
[2020-10-16] MEDS: MIRTAZAPINE 15 MG TABLET PO SCH (21:15)
[2020-10-16] MEDS: EFAVIRENZ 600 MG TAB PO SCH (21:15)
[2020-10-16] MEDS: TRAZODONE 50MG TABLET PO PRN (21:15)
[2020-10-16] MEDS: ATORVASTATIN 40 MG TABLET PO SCH (21:15)
[2020-10-16] MEDS: ENOXAPARIN 40 MG/0.4 ML SQ SCH (21:18)
[2020-10-17 01:16] VITALS: BP 154/81
[2020-10-17 05:15] LABS: CREATININE 0.98 mg/dL (0.7-1.3)
[2020-10-17] MEDS: ASPIRIN 81 MG TABLET CHEW PO SCH (06:44)
[2020-10-17] MEDS: CARVEDILOL 6.25 MG TABLET PO SCH ×2 (06:44→17:55)
[2020-10-17 07:39] VITALS: BP 92/52
[2020-10-17] MEDS: SENNA/DOCUSATE TABLET PO SCH (09:39)
[2020-10-17] MEDS: LISINOPRIL 5 MG TABLET PO SCH (09:40)
[2020-10-17] MEDS: CLOPIDOGREL 75 MG TABLET PO SCH (09:40)
[2020-10-17] MEDS: CYANOCOBALAMIN 1,000 MCG TABLET PO SCH (09:40)
[2020-10-17] MEDS: BUPROPION SR 150 MG TABLET PO SCH (09:40)
[2020-10-17 13:31] VITALS: BP 95/59
[2020-10-17 17:54] VITALS: BP 105/67
[2020-10-17 20:18] VITALS: BP 109/66
[2020-10-17] MEDS: ENOXAPARIN 40 MG/0.4 ML SQ SCH (20:30)
[2020-10-17] MEDS: EFAVIRENZ 600 MG TAB PO SCH (20:30)
[2020-10-17] MEDS: EMTRICITABINE/TENOFOVIR 200 MG/300 MG TABLET PO SCH (20:31)
[2020-10-17] MEDS: MIRTAZAPINE 15 MG TABLET PO SCH (20:31)
[2020-10-17] MEDS: ATORVASTATIN 40 MG TABLET PO SCH (20:31)
[2020-10-17] MEDS: TRAZODONE 50MG TABLET PO PRN (20:36)
[2020-10-18 02:00] VITALS: BP 105/62
[2020-10-18] MEDS: ASPIRIN 81 MG TABLET CHEW PO SCH (05:33)
[2020-10-18] MEDS: CARVEDILOL 6.25 MG TABLET PO SCH ×2 (05:33→18:19)
[2020-10-18 05:34] VITALS: BP 102/57
[2020-10-18 07:45] VITALS: BP 116/70
[2020-10-18] MEDS: CYANOCOBALAMIN 1,000 MCG TABLET PO SCH (09:58)
[2020-10-18] MEDS: LISINOPRIL 5 MG TABLET PO SCH (09:58)
[2020-10-18] MEDS: CLOPIDOGREL 75 MG TABLET PO SCH (09:58)
[2020-10-18] MEDS: SENNA/DOCUSATE TABLET PO SCH (09:58)
[2020-10-18] MEDS: BUPROPION SR 150 MG TABLET PO SCH (09:59)
[2020-10-18 13:12] VITALS: BP 104/65
[2020-10-18 18:53] VITALS: BP 108/71
[2020-10-18] MEDS: ATORVASTATIN 40 MG TABLET PO SCH (19:28)
[2020-10-18] MEDS: EFAVIRENZ 600 MG TAB PO SCH (19:28)
[2020-10-18] MEDS: EMTRICITABINE/TENOFOVIR 200 MG/300 MG TABLET PO SCH (19:29)
[2020-10-18] MEDS: MIRTAZAPINE 15 MG TABLET PO SCH (19:29)
[2020-10-18] MEDS: ACETAMINOPHEN 325 MG TABLET PO PRN (19:29)
[2020-10-18] MEDS: ENOXAPARIN 40 MG/0.4 ML SQ SCH (19:32)
[2020-10-19 01:33] VITALS: BP 107/66
[2020-10-19 06:00] VITALS: BP 100/61
[2020-10-19] MEDS: ASPIRIN 81 MG TABLET CHEW PO SCH (06:01)
[2020-10-19] MEDS: CARVEDILOL 6.25 MG TABLET PO SCH ×2 (06:02→18:03)
[2020-10-19 07:43] VITALS: BP 108/64
[2020-10-19] MEDS: CLOPIDOGREL 75 MG TABLET PO SCH (08:14)
[2020-10-19] MEDS: SENNA/DOCUSATE TABLET PO SCH ×3 (08:14→21:00)
[2020-10-19] MEDS: BUPROPION SR 150 MG TABLET PO SCH (08:15)
[2020-10-19] MEDS: CYANOCOBALAMIN 1,000 MCG TABLET PO SCH (08:15)
[2020-10-19] MEDS: LISINOPRIL 5 MG TABLET PO SCH (08:15)
[2020-10-19 12:57] VITALS: BP 112/69
[2020-10-19 19:09] VITALS: BP 116/75
[2020-10-19] MEDS ORDERED: BISACODYL 10 MG SUPP PR PRN (19:30)
[2020-10-19] MEDS: POLYETHYLENE GLYCOL 17 GM PACKET PO SCH ×2 (20:00→21:00)
[2020-10-19] MEDS: MIRTAZAPINE 15 MG TABLET PO SCH (22:00)
[2020-10-19] MEDS: ENOXAPARIN 40 MG/0.4 ML SQ SCH (22:00)
[2020-10-19] MEDS: EFAVIRENZ 600 MG TAB PO SCH (22:00)
[2020-10-19] MEDS: ATORVASTATIN 40 MG TABLET PO SCH (22:30)
[2020-10-19] MEDS: EMTRICITABINE/TENOFOVIR 200 MG/300 MG TABLET PO SCH (23:03)
[2020-10-19] MEDS: HYDROcodone/APAP 5/325 TABLET PO PRN (23:08)
[2020-10-20 00:38] VITALS: BP 123/75
[2020-10-20] MEDS: ASPIRIN 81 MG TABLET CHEW PO SCH (05:54)
[2020-10-20] MEDS: CARVEDILOL 6.25 MG TABLET PO SCH ×2 (05:54→17:59)
[2020-10-20 06:13] LABS: CREATININE 1.06 mg/dL (0.7-1.3)
[2020-10-20 06:54] VITALS: BP 132/76
[2020-10-20] MEDS: POLYETHYLENE GLYCOL 17 GM PACKET PO SCH ×2 (09:00→20:47)
[2020-10-20] MEDS: LISINOPRIL 5 MG TABLET PO SCH (09:08)
[2020-10-20] MEDS: CYANOCOBALAMIN 1,000 MCG TABLET PO SCH (09:09)
[2020-10-20] MEDS: BUPROPION SR 150 MG TABLET PO SCH (09:09)
[2020-10-20] MEDS: CLOPIDOGREL 75 MG TABLET PO SCH (09:09)
[2020-10-20] MEDS: SENNA/DOCUSATE TABLET PO SCH ×2 (09:09→20:47)
[2020-10-20 12:37] VITALS: BP 101/61
[2020-10-20 16:30] LABS: ALBUMIN 3.2 g/dL (3.4-5.0); ANION GAP 8 mmol/L (5-15); CALCIUM 8.5 mg/dL (8.5-10.1); CHLORIDE 110 mmol/L (98-107); CREATININE 0.95 mg/dL (0.7-1.3)
[2020-10-20 19:22] VITALS: BP 111/70
[2020-10-20] MEDS: MIRTAZAPINE 15 MG TABLET PO SCH (20:46)
[2020-10-20] MEDS: ATORVASTATIN 40 MG TABLET PO SCH (20:46)
[2020-10-20] MEDS: EMTRICITABINE/TENOFOVIR 200 MG/300 MG TABLET PO SCH (20:46)
[2020-10-20] MEDS: TAMSULOSIN 0.4 MG CAP.ER.24H PO SCH (20:46)
[2020-10-20] MEDS: ENOXAPARIN 40 MG/0.4 ML SQ SCH (20:47)
[2020-10-20] MEDS: EFAVIRENZ 600 MG TAB PO SCH (20:56)
[2020-10-21 00:03] VITALS: BP 106/67
[2020-10-21 05:42] LABS: BASOPHILS % (AUTO) 2 % (0-1); EOSINOPHILS % (AUTO) 3 % (1-7); LYMPHOCYTES % (AUTO) 33 % (22-44); MEAN CORPUSCULAR HEMOGLOBIN 31.5 pg (27.5-34.5); MEAN CORPUSCULAR HGB CONC 33.7 g/dL (33.2-36.2); MEAN PLATELET VOLUME 7.1 fL (7.4-10.4); MONOCYTES % (AUTO) 10 % (2-9); NEUTROPHILS % (AUTO) 54 % (42-75); PLATELET COUNT 167 x10^3/uL (130-400); RED BLOOD COUNT 3.78 x10^6/uL (4.38-5.82); RED CELL DISTRIBUTION WIDTH 16.9 % (9.4-14.8)
[2020-10-21 05:46] LABS: MD NO
[2020-10-21] MEDS: CARVEDILOL 6.25 MG TABLET PO SCH ×2 (05:52→16:52)
[2020-10-21] MEDS: ASPIRIN 81 MG TABLET CHEW PO SCH (05:52)
[2020-10-21 07:43] VITALS: BP 107/66
[2020-10-21] MEDS: TAMSULOSIN 0.4 MG CAP.ER.24H PO SCH ×2 (08:23→20:47)
[2020-10-21] MEDS: CLOPIDOGREL 75 MG TABLET PO SCH (08:23)
[2020-10-21] MEDS: CYANOCOBALAMIN 1,000 MCG TABLET PO SCH (08:23)
[2020-10-21] MEDS: POLYETHYLENE GLYCOL 17 GM PACKET PO SCH ×2 (08:23→20:48)
[2020-10-21] MEDS: BUPROPION SR 150 MG TABLET PO SCH (08:23)
[2020-10-21] MEDS: SENNA/DOCUSATE TABLET PO SCH ×2 (08:23→20:47)
[2020-10-21 13:55] VITALS: BP 109/68
[2020-10-21 18:43] VITALS: BP 111/75
[2020-10-21] MEDS: ATORVASTATIN 40 MG TABLET PO SCH (20:47)
[2020-10-21] MEDS: EMTRICITABINE/TENOFOVIR 200 MG/300 MG TABLET PO SCH (20:47)
[2020-10-21] MEDS: MIRTAZAPINE 15 MG TABLET PO SCH (20:47)
[2020-10-21] MEDS: EFAVIRENZ 600 MG TAB PO SCH (20:47)
[2020-10-21] MEDS: ENOXAPARIN 40 MG/0.4 ML SQ SCH (20:48)
[2020-10-22 00:33] VITALS: BP 96/60
[2020-10-22] MEDS: HYDROcodone/APAP 5/325 TABLET PO PRN (03:06)
[2020-10-22 05:57] VITALS: BP 110/72
[2020-10-22] MEDS: CARVEDILOL 6.25 MG TABLET PO SCH ×2 (05:58→17:09)
[2020-10-22] MEDS: ASPIRIN 81 MG TABLET CHEW PO SCH (05:59)
[2020-10-22 06:47] VITALS: BP 96/60
[2020-10-22] MEDS: TAMSULOSIN 0.4 MG CAP.ER.24H PO SCH ×2 (08:56→21:05)
[2020-10-22] MEDS: BUPROPION SR 150 MG TABLET PO SCH (08:56)
[2020-10-22] MEDS: SENNA/DOCUSATE TABLET PO SCH ×2 (08:56→21:05)
[2020-10-22] MEDS: CYANOCOBALAMIN 1,000 MCG TABLET PO SCH (08:56)
[2020-10-22] MEDS: CLOPIDOGREL 75 MG TABLET PO SCH (08:56)
[2020-10-22] MEDS: POLYETHYLENE GLYCOL 17 GM PACKET PO SCH ×2 (08:57→21:00)
[2020-10-22 13:03] VITALS: BP 110/61
[2020-10-22 19:02] VITALS: BP 105/71
[2020-10-22] MEDS: ENOXAPARIN 40 MG/0.4 ML SQ SCH (21:00)
[2020-10-22] MEDS: EMTRICITABINE/TENOFOVIR 200 MG/300 MG TABLET PO SCH (21:05)
[2020-10-22] MEDS: ATORVASTATIN 40 MG TABLET PO SCH (21:06)
[2020-10-22] MEDS: EFAVIRENZ 600 MG TAB PO SCH (21:06)
[2020-10-22] MEDS: MIRTAZAPINE 15 MG TABLET PO SCH (21:06)
[2020-10-23 01:45] VITALS: BP 108/67
[2020-10-23 05:55] VITALS: BP 116/75
[2020-10-23] MEDS: ASPIRIN 81 MG TABLET CHEW PO SCH (05:58)
[2020-10-23] MEDS: CARVEDILOL 6.25 MG TABLET PO SCH ×2 (05:58→17:59)
[2020-10-23 07:43] VITALS: BP 146/85
[2020-10-23] MEDS: SENNA/DOCUSATE TABLET PO SCH ×2 (07:55→21:00)
[2020-10-23] MEDS: TAMSULOSIN 0.4 MG CAP.ER.24H PO SCH ×2 (07:55→21:48)
[2020-10-23] MEDS: CYANOCOBALAMIN 1,000 MCG TABLET PO SCH (07:55)
[2020-10-23] MEDS: POLYETHYLENE GLYCOL 17 GM PACKET PO SCH ×2 (07:56→21:00)
[2020-10-23] MEDS: BUPROPION SR 150 MG TABLET PO SCH (07:56)
[2020-10-23] MEDS: CLOPIDOGREL 75 MG TABLET PO SCH (07:56)
[2020-10-23 12:34] VITALS: BP 121/76
[2020-10-23 19:21] VITALS: BP 101/64
[2020-10-23] MEDS: ENOXAPARIN 40 MG/0.4 ML SQ SCH (21:00)
[2020-10-23] MEDS: EFAVIRENZ 600 MG TAB PO SCH (21:48)
[2020-10-23] MEDS: ATORVASTATIN 40 MG TABLET PO SCH (21:48)
[2020-10-23] MEDS: MIRTAZAPINE 15 MG TABLET PO SCH (21:49)
[2020-10-23] MEDS: EMTRICITABINE/TENOFOVIR 200 MG/300 MG TABLET PO SCH (21:49)
[2020-10-24 02:54] VITALS: BP 104/68
[2020-10-24 05:58] VITALS: BP 117/68
[2020-10-24] MEDS: CARVEDILOL 6.25 MG TABLET PO SCH ×2 (06:00→16:55)
[2020-10-24] MEDS: ASPIRIN 81 MG TABLET CHEW PO SCH (06:00)
[2020-10-24 07:22] VITALS: BP 151/62
[2020-10-24] MEDS: BUPROPION SR 150 MG TABLET PO SCH (09:14)
[2020-10-24] MEDS: CLOPIDOGREL 75 MG TABLET PO SCH (09:14)
[2020-10-24] MEDS: CYANOCOBALAMIN 1,000 MCG TABLET PO SCH (09:15)
[2020-10-24] MEDS: SENNA/DOCUSATE TABLET PO SCH ×2 (09:15→20:24)
[2020-10-24] MEDS: POLYETHYLENE GLYCOL 17 GM PACKET PO SCH ×2 (09:16→20:25)
[2020-10-24] MEDS: TAMSULOSIN 0.4 MG CAP.ER.24H PO SCH ×2 (09:16→20:24)
[2020-10-24 13:04] VITALS: BP 106/62
[2020-10-24 16:55] VITALS: BP 122/74
[2020-10-24 19:00] VITALS: BP 110/71
[2020-10-24] MEDS: ENOXAPARIN 40 MG/0.4 ML SQ SCH ×2 (20:24→20:29)
[2020-10-24] MEDS: MIRTAZAPINE 15 MG TABLET PO SCH (20:24)
[2020-10-24] MEDS: EMTRICITABINE/TENOFOVIR 200 MG/300 MG TABLET PO SCH (20:24)
[2020-10-24] MEDS: ATORVASTATIN 40 MG TABLET PO SCH (20:24)
[2020-10-24] MEDS: EFAVIRENZ 600 MG TAB PO SCH (21:36)
[2020-10-25 00:55] VITALS: BP 149/87
[2020-10-25] MEDS: ASPIRIN 81 MG TABLET CHEW PO SCH (05:13)
[2020-10-25 05:14] VITALS: BP 122/76
[2020-10-25] MEDS: CARVEDILOL 6.25 MG TABLET PO SCH ×2 (05:17→18:14)
[2020-10-25 07:05] VITALS: BP 130/77
[2020-10-25] MEDS: TAMSULOSIN 0.4 MG CAP.ER.24H PO SCH ×2 (08:15→19:38)
[2020-10-25] MEDS: CYANOCOBALAMIN 1,000 MCG TABLET PO SCH (08:15)
[2020-10-25] MEDS: CLOPIDOGREL 75 MG TABLET PO SCH (08:15)
[2020-10-25] MEDS: BUPROPION SR 150 MG TABLET PO SCH (08:15)
[2020-10-25] MEDS: POLYETHYLENE GLYCOL 17 GM PACKET PO SCH ×2 (08:16→19:36)
[2020-10-25] MEDS: SENNA/DOCUSATE TABLET PO SCH ×2 (08:16→19:38)
[2020-10-25 13:52] VITALS: BP 129/71
[2020-10-25 19:02] VITALS: BP 110/64
[2020-10-25] MEDS: ENOXAPARIN 40 MG/0.4 ML SQ SCH (19:37)
[2020-10-25] MEDS: MIRTAZAPINE 15 MG TABLET PO SCH (19:38)
[2020-10-25] MEDS: ATORVASTATIN 40 MG TABLET PO SCH (19:38)
[2020-10-25] MEDS: ONDANSETRON ODT 4 MG PO PRN (19:38)
[2020-10-25] MEDS: EFAVIRENZ 600 MG TAB PO SCH (19:38)
[2020-10-25] MEDS: EMTRICITABINE/TENOFOVIR 200 MG/300 MG TABLET PO SCH (20:29)
[2020-10-26 00:19] VITALS: BP 136/85
[2020-10-26] MEDS: CARVEDILOL 6.25 MG TABLET PO SCH ×2 (05:28→18:00)
[2020-10-26] MEDS: ASPIRIN 81 MG TABLET CHEW PO SCH (05:28)
[2020-10-26 05:39] LABS: CREATININE 0.96 mg/dL (0.7-1.3)
[2020-10-26 07:18] VITALS: BP 112/70
[2020-10-26] MEDS: LISINOPRIL 5 MG TABLET PO SCH (09:00)
[2020-10-26] MEDS: CLOPIDOGREL 75 MG TABLET PO SCH (09:02)
[2020-10-26] MEDS: POLYETHYLENE GLYCOL 17 GM PACKET PO SCH ×2 (09:02→20:51)
[2020-10-26] MEDS: BUPROPION SR 150 MG TABLET PO SCH (09:02)
[2020-10-26] MEDS: TAMSULOSIN 0.4 MG CAP.ER.24H PO SCH ×2 (09:02→20:52)
[2020-10-26] MEDS: SENNA/DOCUSATE TABLET PO SCH ×2 (09:02→20:51)
[2020-10-26] MEDS: CYANOCOBALAMIN 1,000 MCG TABLET PO SCH (09:02)
[2020-10-26 13:00] VITALS: BP 114/71
[2020-10-26 18:16] VITALS: BP 101/67
[2020-10-26] MEDS: ATORVASTATIN 40 MG TABLET PO SCH (20:52)
[2020-10-26] MEDS: MIRTAZAPINE 15 MG TABLET PO SCH (20:52)
[2020-10-26] MEDS: EFAVIRENZ 600 MG TAB PO SCH (20:52)
[2020-10-26] MEDS: ENOXAPARIN 40 MG/0.4 ML SQ SCH (20:52)
[2020-10-26] MEDS: EMTRICITABINE/TENOFOVIR 200 MG/300 MG TABLET PO SCH (20:56)
[2020-10-26] MEDS: TRAZODONE 50MG TABLET PO PRN (20:56)
[2020-10-27 01:40] VITALS: BP 130/80
[2020-10-27 06:03] VITALS: BP 148/84
[2020-10-27] MEDS: ASPIRIN 81 MG TABLET CHEW PO SCH (06:04)
[2020-10-27] MEDS: CARVEDILOL 6.25 MG TABLET PO SCH ×2 (06:04→18:18)
[2020-10-27 07:17] VITALS: BP 105/68
[2020-10-27] MEDS: LISINOPRIL 5 MG TABLET PO SCH (09:45)
[2020-10-27] MEDS: CYANOCOBALAMIN 1,000 MCG TABLET PO SCH (09:45)
[2020-10-27] MEDS: TAMSULOSIN 0.4 MG CAP.ER.24H PO SCH ×2 (09:46→21:05)
[2020-10-27] MEDS: SENNA/DOCUSATE TABLET PO SCH ×2 (09:46→21:04)
[2020-10-27] MEDS: CLOPIDOGREL 75 MG TABLET PO SCH (09:46)
[2020-10-27] MEDS: BUPROPION SR 150 MG TABLET PO SCH (09:46)
[2020-10-27] MEDS: POLYETHYLENE GLYCOL 17 GM PACKET PO SCH ×2 (09:46→21:00)
[2020-10-27 13:05] VITALS: BP 119/67
[2020-10-27 20:58] VITALS: BP 95/60
[2020-10-27] MEDS: ENOXAPARIN 40 MG/0.4 ML SQ SCH (21:00)
[2020-10-27] MEDS: MIRTAZAPINE 15 MG TABLET PO SCH (21:04)
[2020-10-27] MEDS: EMTRICITABINE/TENOFOVIR 200 MG/300 MG TABLET PO SCH (21:04)
[2020-10-27] MEDS: ATORVASTATIN 40 MG TABLET PO SCH (21:05)
[2020-10-27] MEDS: EFAVIRENZ 600 MG TAB PO SCH (21:05)
[2020-10-28 01:21] VITALS: BP 124/72
[2020-10-28 05:01] VITALS: BP 106/65
[2020-10-28] MEDS: CARVEDILOL 6.25 MG TABLET PO SCH ×2 (05:04→17:04)
[2020-10-28] MEDS: ASPIRIN 81 MG TABLET CHEW PO SCH (05:04)
[2020-10-28 07:41] VITALS: BP 126/81
[2020-10-28] MEDS: BUPROPION SR 150 MG TABLET PO SCH (09:34)
[2020-10-28] MEDS: LISINOPRIL 5 MG TABLET PO SCH (09:35)
[2020-10-28] MEDS: SENNA/DOCUSATE TABLET PO SCH ×2 (09:35→20:51)
[2020-10-28] MEDS: CYANOCOBALAMIN 1,000 MCG TABLET PO SCH (09:36)
[2020-10-28] MEDS: TAMSULOSIN 0.4 MG CAP.ER.24H PO SCH ×2 (09:36→20:51)
[2020-10-28] MEDS: CLOPIDOGREL 75 MG TABLET PO SCH (09:37)
[2020-10-28] MEDS: POLYETHYLENE GLYCOL 17 GM PACKET PO SCH ×2 (09:37→20:51)
[2020-10-28 12:36] VITALS: BP 135/81
[2020-10-28 19:08] VITALS: BP 98/60
[2020-10-28] MEDS: EMTRICITABINE/TENOFOVIR 200 MG/300 MG TABLET PO SCH (20:50)
[2020-10-28] MEDS: ATORVASTATIN 40 MG TABLET PO SCH (20:50)
[2020-10-28] MEDS: EFAVIRENZ 600 MG TAB PO SCH (20:50)
[2020-10-28] MEDS: MIRTAZAPINE 15 MG TABLET PO SCH (20:51)
[2020-10-28] MEDS: ENOXAPARIN 40 MG/0.4 ML SQ SCH (20:51)
[2020-10-29] VITALS (7 sets, daily range): BP systolic 84–120; BP diastolic 46–74
[2020-10-29 05:09] LABS: BASOPHILS % (AUTO) 1 % (0-1); EOSINOPHILS % (AUTO) 2 % (1-7); LYMPHOCYTES % (AUTO) 30 % (22-44); MEAN CORPUSCULAR HEMOGLOBIN 31.6 pg (27.5-34.5); MEAN CORPUSCULAR HGB CONC 33.8 g/dL (33.2-36.2); MEAN PLATELET VOLUME 7.4 fL (7.4-10.4); MONOCYTES % (AUTO) 12 % (2-9); NEUTROPHILS % (AUTO) 54 % (42-75); PLATELET COUNT 156 x10^3/uL (130-400); RED CELL DISTRIBUTION WIDTH 16.8 % (9.4-14.8)
[2020-10-29 05:10] LABS: MD NO
[2020-10-29 05:16] LABS: CHLORIDE 114 mmol/L (98-107)
[2020-10-29 05:28] LABS: ALANINE AMINOTRANSFERASE 51 U/L (12-78); ALBUMIN 3.3 g/dL (3.4-5.0); ALKALINE PHOSPHATASE 90 U/L (45-117); BILIRUBIN,TOTAL 0.3 mg/dL (0.2-1.0); CREATININE 1.05 mg/dL (0.7-1.3); TOTAL PROTEIN 6.9 g/dL (6.4-8.2)
[2020-10-29 05:29] LABS: ANION GAP 5 mmol/L (5-15)
[2020-10-29] MEDS: ASPIRIN 81 MG TABLET CHEW PO SCH (05:40)
[2020-10-29] MEDS: CARVEDILOL 6.25 MG TABLET PO SCH ×2 (05:40→17:15)
[2020-10-29] MEDS: LISINOPRIL 5 MG TABLET PO SCH (07:38)
[2020-10-29] MEDS: TAMSULOSIN 0.4 MG CAP.ER.24H PO SCH ×2 (07:38→19:35)
[2020-10-29] MEDS: CLOPIDOGREL 75 MG TABLET PO SCH (07:39)
[2020-10-29] MEDS: SENNA/DOCUSATE TABLET PO SCH ×2 (07:39→19:35)
[2020-10-29] MEDS: BUPROPION SR 150 MG TABLET PO SCH (07:39)
[2020-10-29] MEDS: CYANOCOBALAMIN 1,000 MCG TABLET PO SCH (07:39)
[2020-10-29] MEDS: POLYETHYLENE GLYCOL 17 GM PACKET PO SCH ×2 (07:40→19:35)
[2020-10-29] MEDS: ATORVASTATIN 40 MG TABLET PO SCH (19:35)
[2020-10-29] MEDS: MIRTAZAPINE 15 MG TABLET PO SCH (19:35)
[2020-10-29] MEDS: EFAVIRENZ 600 MG TAB PO SCH (19:35)
[2020-10-29] MEDS: EMTRICITABINE/TENOFOVIR 200 MG/300 MG TABLET PO SCH (19:36)
[2020-10-29] MEDS: ENOXAPARIN 40 MG/0.4 ML SQ SCH (19:36)
[2020-10-30 00:33] VITALS: BP 114/67
[2020-10-30 05:30] VITALS: BP 120/77
[2020-10-30] MEDS: ASPIRIN 81 MG TABLET CHEW PO SCH (05:30)
[2020-10-30] MEDS: CARVEDILOL 6.25 MG TABLET PO SCH ×2 (05:31→17:51)
[2020-10-30 07:03] VITALS: BP 113/74
[2020-10-30] MEDS: CYANOCOBALAMIN 1,000 MCG TABLET PO SCH (07:56)
[2020-10-30] MEDS: BUPROPION SR 150 MG TABLET PO SCH (07:56)
[2020-10-30] MEDS: SENNA/DOCUSATE TABLET PO SCH ×2 (07:56→20:01)
[2020-10-30] MEDS: LISINOPRIL 5 MG TABLET PO SCH (07:57)
[2020-10-30] MEDS: POLYETHYLENE GLYCOL 17 GM PACKET PO SCH ×2 (07:57→20:01)
[2020-10-30] MEDS: CLOPIDOGREL 75 MG TABLET PO SCH (07:57)
[2020-10-30] MEDS: TAMSULOSIN 0.4 MG CAP.ER.24H PO SCH ×2 (07:57→20:00)
[2020-10-30 13:26] VITALS: BP 93/58
[2020-10-30 17:48] VITALS: BP 105/71
[2020-10-30 19:30] VITALS: BP 99/64
[2020-10-30] MEDS: EFAVIRENZ 600 MG TAB PO SCH (20:00)
[2020-10-30] MEDS: MIRTAZAPINE 15 MG TABLET PO SCH (20:00)
[2020-10-30] MEDS: ATORVASTATIN 40 MG TABLET PO SCH (20:00)
[2020-10-30] MEDS: EMTRICITABINE/TENOFOVIR 200 MG/300 MG TABLET PO SCH (20:01)
[2020-10-30] MEDS: ENOXAPARIN 40 MG/0.4 ML SQ SCH (20:01)
[2020-10-31 00:25] VITALS: BP 108/68
[2020-10-31 05:13] VITALS: BP 102/62
[2020-10-31] MEDS: CARVEDILOL 6.25 MG TABLET PO SCH ×2 (05:13→16:55)
[2020-10-31] MEDS: ASPIRIN 81 MG TABLET CHEW PO SCH (05:14)
[2020-10-31 07:30] VITALS: BP 113/75
[2020-10-31] MEDS: SENNA/DOCUSATE TABLET PO SCH ×2 (09:00→19:16)
[2020-10-31] MEDS: POLYETHYLENE GLYCOL 17 GM PACKET PO SCH ×2 (09:00→19:16)
[2020-10-31] MEDS: TAMSULOSIN 0.4 MG CAP.ER.24H PO SCH ×2 (09:18→19:31)
[2020-10-31] MEDS: CLOPIDOGREL 75 MG TABLET PO SCH (09:18)
[2020-10-31] MEDS: CYANOCOBALAMIN 1,000 MCG TABLET PO SCH (09:18)
[2020-10-31] MEDS: BUPROPION SR 150 MG TABLET PO SCH (09:18)
[2020-10-31] MEDS: LISINOPRIL 5 MG TABLET PO SCH (09:18)
[2020-10-31 13:38] VITALS: BP 112/71
[2020-10-31 19:15] VITALS: BP 95/57
[2020-10-31] MEDS: ENOXAPARIN 40 MG/0.4 ML SQ SCH (19:16)
[2020-10-31] MEDS: EFAVIRENZ 600 MG TAB PO SCH (19:31)
[2020-10-31] MEDS: ATORVASTATIN 40 MG TABLET PO SCH (19:32)
[2020-10-31] MEDS: MIRTAZAPINE 15 MG TABLET PO SCH (19:32)
[2020-10-31] MEDS: EMTRICITABINE/TENOFOVIR 200 MG/300 MG TABLET PO SCH (19:32)
[2020-11-01 01:23] VITALS: BP 109/74
[2020-11-01] MEDS: CARVEDILOL 6.25 MG TABLET PO SCH ×2 (05:19→18:06)
[2020-11-01] MEDS: ASPIRIN 81 MG TABLET CHEW PO SCH (05:19)
[2020-11-01 05:21] VITALS: BP 122/74
[2020-11-01 06:11] LABS: CREATININE 0.93 mg/dL (0.7-1.3)
[2020-11-01 06:42] VITALS: BP 105/67
[2020-11-01] MEDS: CLOPIDOGREL 75 MG TABLET PO SCH (07:49)
[2020-11-01] MEDS: SENNA/DOCUSATE TABLET PO SCH ×2 (07:49→19:36)
[2020-11-01] MEDS: BUPROPION SR 150 MG TABLET PO SCH (07:49)
[2020-11-01] MEDS: CYANOCOBALAMIN 1,000 MCG TABLET PO SCH (07:49)
[2020-11-01] MEDS: LISINOPRIL 5 MG TABLET PO SCH (07:49)
[2020-11-01] MEDS: POLYETHYLENE GLYCOL 17 GM PACKET PO SCH ×2 (07:50→19:35)
[2020-11-01] MEDS: TAMSULOSIN 0.4 MG CAP.ER.24H PO SCH ×2 (07:50→19:57)
[2020-11-01 12:48] VITALS: BP 112/70
[2020-11-01 18:49] VITALS: BP 97/58
[2020-11-01] MEDS: ENOXAPARIN 40 MG/0.4 ML SQ SCH (19:36)
[2020-11-01] MEDS: MIRTAZAPINE 15 MG TABLET PO SCH (19:57)
[2020-11-01] MEDS: EMTRICITABINE/TENOFOVIR 200 MG/300 MG TABLET PO SCH (19:57)
[2020-11-01] MEDS: ATORVASTATIN 40 MG TABLET PO SCH (19:57)
[2020-11-01] MEDS: EFAVIRENZ 600 MG TAB PO SCH (19:57)
[2020-11-02 00:48] VITALS: BP 113/71
[2020-11-02] MEDS: CARVEDILOL 6.25 MG TABLET PO SCH ×2 (05:59→16:57)
[2020-11-02] MEDS: ASPIRIN 81 MG TABLET CHEW PO SCH (06:00)
[2020-11-02 06:02] VITALS: BP 134/73
[2020-11-02] MEDS: POLYETHYLENE GLYCOL 17 GM PACKET PO SCH ×2 (09:00→20:25)
[2020-11-02] MEDS: BUPROPION SR 150 MG TABLET PO SCH (09:04)
[2020-11-02] MEDS: SENNA/DOCUSATE TABLET PO SCH ×2 (09:04→20:25)
[2020-11-02] MEDS: CYANOCOBALAMIN 1,000 MCG TABLET PO SCH (09:05)
[2020-11-02] MEDS: CLOPIDOGREL 75 MG TABLET PO SCH (09:05)
[2020-11-02] MEDS: TAMSULOSIN 0.4 MG CAP.ER.24H PO SCH ×2 (09:05→20:24)
[2020-11-02] MEDS: LISINOPRIL 5 MG TABLET PO SCH (09:05)
[2020-11-02 12:29] VITALS: BP 124/77
[2020-11-02 19:49] VITALS: BP 95/49
[2020-11-02] MEDS: EFAVIRENZ 600 MG TAB PO SCH (20:24)
[2020-11-02] MEDS: ATORVASTATIN 40 MG TABLET PO SCH (20:24)
[2020-11-02] MEDS: ENOXAPARIN 40 MG/0.4 ML SQ SCH (20:24)
[2020-11-02] MEDS: MIRTAZAPINE 15 MG TABLET PO SCH (20:24)
[2020-11-02] MEDS: EMTRICITABINE/TENOFOVIR 200 MG/300 MG TABLET PO SCH (20:24)
[2020-11-02] MEDS: ACETAMINOPHEN 325 MG TABLET PO PRN (20:28)
[2020-11-03] VITALS (7 sets, daily range): BP systolic 95–132; BP diastolic 61–83
[2020-11-03] MEDS: ASPIRIN 81 MG TABLET CHEW PO SCH (05:29)
[2020-11-03] MEDS: CARVEDILOL 6.25 MG TABLET PO SCH ×2 (05:29→17:10)
[2020-11-03] MEDS: BUPROPION SR 150 MG TABLET PO SCH (08:10)
[2020-11-03] MEDS: LISINOPRIL 5 MG TABLET PO SCH (08:10)
[2020-11-03] MEDS: CYANOCOBALAMIN 1,000 MCG TABLET PO SCH (08:10)
[2020-11-03] MEDS: CLOPIDOGREL 75 MG TABLET PO SCH (08:10)
[2020-11-03] MEDS: SENNA/DOCUSATE TABLET PO SCH ×2 (08:10→21:16)
[2020-11-03] MEDS: TAMSULOSIN 0.4 MG CAP.ER.24H PO SCH ×2 (08:10→21:16)
[2020-11-03] MEDS: POLYETHYLENE GLYCOL 17 GM PACKET PO SCH ×2 (08:11→21:16)
[2020-11-03] MEDS: ENOXAPARIN 40 MG/0.4 ML SQ SCH (21:16)
[2020-11-03] MEDS: EFAVIRENZ 600 MG TAB PO SCH (21:16)
[2020-11-03] MEDS: EMTRICITABINE/TENOFOVIR 200 MG/300 MG TABLET PO SCH (21:16)
[2020-11-03] MEDS: MIRTAZAPINE 15 MG TABLET PO SCH (21:16)
[2020-11-03] MEDS: ATORVASTATIN 40 MG TABLET PO SCH (21:16)
[2020-11-04 01:15] VITALS: BP 100/62
[2020-11-04 05:59] VITALS: BP 108/72
[2020-11-04] MEDS: CARVEDILOL 6.25 MG TABLET PO SCH (06:00)
[2020-11-04] MEDS: ASPIRIN 81 MG TABLET CHEW PO SCH (06:00)
[2020-11-04 06:34] VITALS: BP 80/50
[2020-11-04] MEDS: CLOPIDOGREL 75 MG TABLET PO SCH (08:01)
[2020-11-04] MEDS: POLYETHYLENE GLYCOL 17 GM PACKET PO SCH ×2 (08:01→21:07)
[2020-11-04] MEDS: TAMSULOSIN 0.4 MG CAP.ER.24H PO SCH ×2 (08:01→21:07)
[2020-11-04] MEDS: SENNA/DOCUSATE TABLET PO SCH ×2 (08:01→21:07)
[2020-11-04] MEDS: CYANOCOBALAMIN 1,000 MCG TABLET PO SCH (08:01)
[2020-11-04] MEDS: BUPROPION SR 150 MG TABLET PO SCH (08:01)
[2020-11-04 13:54] VITALS: BP 105/62
[2020-11-04] MEDS: CARVEDILOL 3.125 MG TABLET PO SCH (17:34)
[2020-11-04 19:05] VITALS: BP 99/60
[2020-11-04] MEDS: ENOXAPARIN 40 MG/0.4 ML SQ SCH (21:00)
[2020-11-04] MEDS: EMTRICITABINE/TENOFOVIR 200 MG/300 MG TABLET PO SCH (21:06)
[2020-11-04] MEDS: MIRTAZAPINE 15 MG TABLET PO SCH (21:06)
[2020-11-04] MEDS: EFAVIRENZ 600 MG TAB PO SCH (21:07)
[2020-11-04] MEDS: ATORVASTATIN 40 MG TABLET PO SCH (21:07)
[2020-11-05 01:06] VITALS: BP 108/69
[2020-11-05] MEDS: CARVEDILOL 3.125 MG TABLET PO SCH (06:00)
[2020-11-05] MEDS: ASPIRIN 81 MG TABLET CHEW PO SCH (06:27)
[2020-11-05 09:10] VITALS: BP 111/67
[2020-11-05] MEDS: POLYETHYLENE GLYCOL 17 GM PACKET PO SCH (09:12)
[2020-11-05] MEDS: CLOPIDOGREL 75 MG TABLET PO SCH (09:13)
[2020-11-05] MEDS: CYANOCOBALAMIN 1,000 MCG TABLET PO SCH (09:13)
[2020-11-05] MEDS: BUPROPION SR 150 MG TABLET PO SCH (09:13)
[2020-11-05] MEDS: SENNA/DOCUSATE TABLET PO SCH (09:13)
[2020-11-05] MEDS: TAMSULOSIN 0.4 MG CAP.ER.24H PO SCH (09:13)
[2020-11-05] MEDS ORDERED: TAMS-11 PO (12:33)
[2020-11-05] MEDS ORDERED: BUPR150T73 PO (12:33)
[2020-11-05] MEDS ORDERED: MIRT-34 PO (12:33)
[2020-11-05] MEDS ORDERED: CARV3.1212 PO ×2 (12:33)
[2020-11-05 14:07] VITALS: BP 133/77
[2020-11-05] MEDS ORDERED: CARV3.122 PO (17:03)
== END 2020-11-05 17:10 | disposition home or self-care (01) | DRG 64 ==
LOC: ED 09:54 → EDIP 14:41 → 4NE 15:21 → 3N 09-12 13:16
PROVIDERS: ADMIT Family Medicine; ATTEND Hospitalist
DX: I63.9 Cerebral infarction, unspecified (principal); G93.41 Metabolic encephalopathy; E43 Unspecified severe protein-calorie malnutrition; S22.41XA Multiple fractures of ribs, right side, initial encounter for closed fracture; B37.49 Other urogenital candidiasis; F05 Delirium due to known physiological condition; I50.42 Chronic combined systolic (congestive) and diastolic (congestive) heart failure; I42.9 Cardiomyopathy, unspecified; D64.9 Anemia, unspecified; E27.9 Disorder of adrenal gland, unspecified; F32.9 Major depressive disorder, single episode, unspecified; F43.22 Adjustment disorder with anxiety; G31.84 Mild cognitive impairment of uncertain or unknown etiology; I25.10 Atherosclerotic heart disease of native coronary artery without angina pectoris; J32.0 Chronic maxillary sinusitis; R53.81 Other malaise; Z20.822 Contact with and (suspected) exposure to COVID-19; Z21 Asymptomatic human immunodeficiency virus [HIV] infection status; Z79.02 Long term (current) use of antithrombotics/antiplatelets; Z79.82 Long term (current) use of aspirin; Z83.3 Family history of diabetes mellitus; Z90.49 Acquired absence of other specified parts of digestive tract; Z91.19 Patient's noncompliance with other medical treatment and regimen; Z59.0 Homelessness
CPT/HCPCS: 36415; 70450; 70553; 71045; 71260; 72125; 74177; 78452; 80048; 80053; 80061; 80307; 81001; 82040; 82140; 82565; 82607; 83605; 84145; 84443; 84484; 85025; 86361; 86480; 86592; 87040; 87086; 87106; 87536; 93005; 93017; 93306; 93880; 95819; 96365; 99285; G0378; J0696; J1650; J2785; Q0162; Q9967; 92523-GN; A9502; A9575; J7030; J7120; L3999; U0003

== ENCOUNTER 2021-01-31 13:42 | Emergency (ER) | payer MEDICARE, MEDICAID ==
[~2021-01-31] VITALS: Ht 180.3 cm; Wt 80.8 kg
[~2021-01-31 13:42] MED LIST changes: +ASPI-963 PO; +ATOR40TA78 PO; +BUPR150T73 PO; +CARV3.1212 PO; +CARV3.122 PO; +CARV6.2512 PO; +CLOP75TA PO; +LISI5TAB7 PO; +MIRT-34 PO; +TAMS-11 PO
[2021-01-31 14:36] LABS: BASOPHILS % (AUTO) 1 % (0-1); EOSINOPHILS % (AUTO) 2 % (1-7); LYMPHOCYTES % (AUTO) 35 % (22-44); MEAN CORPUSCULAR HEMOGLOBIN 31.2 pg (27.5-34.5); MEAN CORPUSCULAR HGB CONC 33.4 g/dL (33.2-36.2); MEAN PLATELET VOLUME 7.7 fL (7.4-10.4); MONOCYTES % (AUTO) 9 % (2-9); NEUTROPHILS % (AUTO) 53 % (42-75); PLATELET COUNT 197 x10^3/uL (130-400); RED CELL DISTRIBUTION WIDTH 15.7 % (9.4-14.8)
[2021-01-31 14:39] LABS: MD NO
[2021-01-31 14:40] LABS: ALANINE AMINOTRANSFERASE 20 U/L (12-78); ALBUMIN 3.5 g/dL (3.4-5.0); ANION GAP 6 mmol/L (5-15); CALCIUM 8.8 mg/dL (8.5-10.1); CHLORIDE 116 mmol/L (98-107); CREATININE 1.37 mg/dL (0.7-1.3)
[2021-01-31 14:42] LABS: ALKALINE PHOSPHATASE 93 U/L (45-117); BILIRUBIN,TOTAL 0.3 mg/dL (0.2-1.0); TOTAL PROTEIN 7.6 g/dL (6.4-8.2)
[2021-01-31] MEDS ORDERED: SODIUM CHLORIDE 0.9% 1,000ML IVBOLUS ONE (16:00)
--- NOTE | 2021-01-31 16:35 | NUR ---
IV PLACED, NS BOLUS INFUSING. URINAL AT BS, BSC WITHIN REACH WITH HAT COLLECTION FOR STOOL. PT UPDATED ON POC, VERBALIZES UNDERSTANDING. CALL LIGHT WITHIN REACH.
[2021-01-31 18:42] VITALS: BP 121/67
== END 2021-01-31 18:44 | disposition home or self-care (01) ==
LOC: ED 16:46
DX: R19.7 Diarrhea, unspecified (principal)
CPT/HCPCS: 36415; 80053; 83690; 85025; 96360; 99283; J7030

== ENCOUNTER 2021-02-10 20:07 | Inpatient (IN) | payer MEDICARE, MEDICAID ==
[~2021-02-10] VITALS: Ht 180.3 cm; Wt 94.3 kg
[~2021-02-10 20:07] MED LIST changes: +MIRT-14 PO; -MIRT-34 PO
[2021-02-10] MEDS ORDERED: ONDANSETRON 2MG/ML, 2ML IVPush ONE (20:30)
[2021-02-10] MEDS ORDERED: MORPHINE SULFATE 4 MG/ML, 1ML IVPush PRN (20:30)
[2021-02-10] MEDS ORDERED: SODIUM CHLORIDE FLUSH 10ML SYR IVF ONE (20:30)
--- NOTE | 2021-02-10 20:45 | NUR ---
PT ARRIVED VIA EMS FROM A LONG-TERM, PT HAD A GROUND LEVEL FALL AND IS COMPLAINING OF LEFT HIP PAIN, PT RECIEVED 200 MCGS OF FENTANYL, 100 INTRANASAL, 100 IV, AND 4MG OF IV ZOFRAN ON THE WAY TO THE HOSPITAL, PT A/OX3, PT ONLY COMPLANINIG OF PAIN, PT PUT ON OXYGEN BY EMS BECAUSE HIS O2 SATURATION DROPPED WHEN HE RECIEVED THE FENTANYL
[2021-02-10] MEDS ORDERED: PLEASE ENTER HEIGHT AND WEIGHT MC SCH (21:00)
[2021-02-10 21:19] LABS: BASOPHILS % (AUTO) 1 % (0-1); EOSINOPHILS % (AUTO) 2 % (1-7); LYMPHOCYTES % (AUTO) 22 % (22-44); MEAN CORPUSCULAR HEMOGLOBIN 31.2 pg (27.5-34.5); MEAN CORPUSCULAR HGB CONC 33.2 g/dL (33.2-36.2); MEAN PLATELET VOLUME 7.9 fL (7.4-10.4); MONOCYTES % (AUTO) 7 % (2-9); NEUTROPHILS % (AUTO) 68 % (42-75); PLATELET COUNT 153 x10^3/uL (130-400); RED BLOOD COUNT 3.89 x10^6/uL (4.38-5.82); RED CELL DISTRIBUTION WIDTH 16.1 % (9.4-14.8)
[2021-02-10 21:30] LABS: INTERNATIONAL NORMALIZED RATIO 1.06 (0.93-1.1); PROTHROMBIN TIME 11.3 Seconds (9.6-11.5)
[2021-02-10 21:32] LABS: ALBUMIN 3.4 g/dL (3.4-5.0); ANION GAP 5 mmol/L (5-15); CALCIUM 8.5 mg/dL (8.5-10.1); CHLORIDE 114 mmol/L (98-107); CREATININE 1.42 mg/dL (0.7-1.3)
[2021-02-10] MEDS ORDERED: ONDANSETRON 2MG/ML, 2ML ONE (21:33)
[2021-02-10] MEDS ORDERED: MORPHINE SULFATE 4 MG/ML, 1ML ONE (21:33)
--- NOTE | 2021-02-10 22:15 | NUR ---
PT ALSEEP IN BED, ALL NEEDS IN REACH, CALL LIGHT IN REACH, VITALS STABLE
[2021-02-10] MEDS ORDERED: ONDANSETRON 2MG/ML, 2ML IVPush PRN (23:00)
[2021-02-10 23:06] VITALS: BP 121/75
[2021-02-11] MEDS: morphine SULFATE 10 MG/ML, 1ML IV PRN ×2 (00:17→04:09)
[2021-02-11 00:25] VITALS: BP 121/75
[2021-02-11] MEDS ORDERED: LABETALOL 5MG/ML, 20ML IVPush PRN (02:00)
[2021-02-11] MEDS ORDERED: ACETAMINOPHEN 325 MG TABLET PO PRN ×2 (02:00→10:00)
[2021-02-11] MEDS ORDERED: BICT1TAB PO (03:29)
[2021-02-11] MEDS ORDERED: ZOLP10TA PO (03:33)
[2021-02-11] MEDS ORDERED: CHOL200024 PO (03:36)
[2021-02-11 06:55] VITALS: BP 108/70
[2021-02-11] MEDS: CARVEDILOL 3.125 MG TABLET PO SCH ×2 (08:18→20:19)
[2021-02-11] MEDS: SENNA/DOCUSATE TABLET PO SCH (08:18)
[2021-02-11] MEDS ORDERED: BUPIVACAINE/PF 0.5% ONE (08:41)
[2021-02-11] MEDS ORDERED: CHLORHEXIDINE 15 ML UDC PO ONE (09:30)
[2021-02-11] MEDS ORDERED: FENTANYL PF 250 MCG/5ML ONE (09:48)
[2021-02-11] MEDS ORDERED: HYDROmorphone 1 MG/ML, 1ML INJ IVPush PRN (10:00)
[2021-02-11] MEDS ORDERED: LORazepam 2 MG/ML, 1ML IVPush PRN (10:00)
[2021-02-11] MEDS ORDERED: ONDANSETRON 2MG/ML, 2ML IVPush PRN (10:00)
[2021-02-11] MEDS ORDERED: METHOCARBAMOL 1,000 MG in DEXTROSE 5% 100 ML IV PRN (10:00)
[2021-02-11] MEDS ORDERED: PROMETHAZINE 25 MG/ML, 1ML IVPush PRN (10:00)
[2021-02-11] MEDS ORDERED: OXYcodone 5 MG/5 ML ORAL.SOL UDC PO PRN (10:00)
[2021-02-11] MEDS ORDERED: LABETALOL 5MG/ML, 20ML IV PRN (10:00)
[2021-02-11] MEDS ORDERED: EPHEDRINE 50 MG/ML, 1ML IVPush PRN (10:00)
[2021-02-11] MEDS ORDERED: HALOPERIDOL 5 MG/ML IV PRN (10:00)
[2021-02-11] MEDS ORDERED: hydrALAzine 20 MG/ML, 1ML IV PRN (10:00)
[2021-02-11] MEDS ORDERED: MEPERIDINE/PF 25MG/0.5ML IVPush PRN (10:00)
[2021-02-11] MEDS ORDERED: ONDANSETRON 2MG/ML, 2ML ONE ×2 (10:05→11:02)
[2021-02-11] MEDS ORDERED: SUCCINYLCHOLINE 20 MG/ML, 10ML ONE (10:05)
[2021-02-11] MEDS ORDERED: CEFAZOLIN 1,000 MG ONE (10:05)
[2021-02-11] MEDS ORDERED: PROPOFOL 10 MG/ML, 20ML ONE (10:05)
[2021-02-11] MEDS ORDERED: FENTANYL PF 100 MCG/2ML ONE (11:02)
[2021-02-11] MEDS ORDERED: OXYcodone 5 MG/5 ML ORAL.SOL UDC ONE (11:02)
[2021-02-11] MEDS ORDERED: ACETAMINOPHEN 650 MG/20.3 ML UDC ONE (11:02)
[2021-02-11] MEDS: FENTANYL PF 100 MCG/2ML IV PRN ×2 (11:12→11:21)
[2021-02-11] MEDS ORDERED: HYDROmorphone 2 MG/ML, 1ML IVPush PRN (12:30)
[2021-02-11] MEDS ORDERED: ONDANSETRON 2MG/ML, 2ML IV PRN (12:30)
[2021-02-11] MEDS ORDERED: OXYcodone/APAP 5/325MG TABLET PO PRN (12:30)
[2021-02-11] MEDS ORDERED: HYDROcodone/APAP 7.5-325MG/15ML UDC PO PRN (12:30)
[2021-02-11] MEDS: KETOROLAC 30 MG/1 ML IV SCH ×2 (12:35→20:15)
[2021-02-11] MEDS ORDERED: SODIUM CHLORIDE 0.9%, 500ML IVBOLUS ONE (14:00)
[2021-02-11 14:24] VITALS: BP 88/55
[2021-02-11] MEDS: CEFAZOLIN PMX 2GM/50ML 50 ML IVPB SCH (17:25)
[2021-02-11 19:20] VITALS: BP_SYST 86; BP_SYST 87; BP_DIAS 54; BP_DIAS 58
[2021-02-11] MEDS: SODIUM CHLORIDE 0.9% 1,000 ML IV SCH (19:42)
[2021-02-11 20:10] VITALS: BP 99/60
[2021-02-11] MEDS: DOCUSATE 100 MG CAPSULE PO SCH (20:15)
[2021-02-11] MEDS: SODIUM CHLORIDE FLUSH 10ML SYR IVF SCH (20:19)
[2021-02-12] VITALS (8 sets, daily range): BP systolic 92–116; BP diastolic 52–70
[2021-02-12] MEDS: CEFAZOLIN PMX 2GM/50ML 50 ML IVPB SCH (01:32)
[2021-02-12] MEDS: SODIUM CHLORIDE 0.9% 1,000 ML IV SCH ×2 (04:02→13:42)
[2021-02-12] MEDS: KETOROLAC 30 MG/1 ML IV SCH (04:02)
[2021-02-12 07:42] LABS: BASOPHILS % (AUTO) 1 % (0-1); EOSINOPHILS % (AUTO) 2 % (1-7); LYMPHOCYTES % (AUTO) 19 % (22-44); MEAN CORPUSCULAR HEMOGLOBIN 31.5 pg (27.5-34.5); MEAN CORPUSCULAR HGB CONC 33.6 g/dL (33.2-36.2); MEAN PLATELET VOLUME 7.5 fL (7.4-10.4); MONOCYTES % (AUTO) 11 % (2-9); NEUTROPHILS % (AUTO) 68 % (42-75); PLATELET COUNT 89 x10^3/uL (130-400); RED BLOOD COUNT 2.12 x10^6/uL (4.38-5.82); RED CELL DISTRIBUTION WIDTH 15.8 % (9.4-14.8)
[2021-02-12 07:53] LABS: ANION GAP 6 mmol/L (5-15); CALCIUM 7.2 mg/dL (8.5-10.1); CHLORIDE 115 mmol/L (98-107); CREATININE 1.16 mg/dL (0.7-1.3)
[2021-02-12] MEDS: SODIUM CHLORIDE FLUSH 10ML SYR IVF SCH ×2 (08:55→21:00)
[2021-02-12] MEDS: CARVEDILOL 3.125 MG TABLET PO SCH ×2 (08:55→21:08)
[2021-02-12] MEDS: SENNA/DOCUSATE TABLET PO SCH (08:56)
[2021-02-12] MEDS: DOCUSATE 100 MG CAPSULE PO SCH ×2 (08:56→21:08)
[2021-02-12] MEDS: OXYcodone/APAP 5/325MG TABLET PO PRN (19:45)
[2021-02-13 02:29] VITALS: BP 98/63
[2021-02-13] MEDS: OXYcodone/APAP 5/325MG TABLET PO PRN ×4 (03:22→22:25)
[2021-02-13 07:12] VITALS: BP 99/65
[2021-02-13] MEDS: CARVEDILOL 3.125 MG TABLET PO SCH ×2 (08:39→22:24)
[2021-02-13] MEDS: DOCUSATE 100 MG CAPSULE PO SCH ×2 (08:40→22:24)
[2021-02-13] MEDS: SODIUM CHLORIDE FLUSH 10ML SYR IVF SCH ×2 (08:40→22:25)
[2021-02-13] MEDS: SENNA/DOCUSATE TABLET PO SCH (08:40)
[2021-02-13 12:26] VITALS: BP 86/65
[2021-02-13 15:15] VITALS: BP 124/74
[2021-02-13 20:04] VITALS: BP 94/61
[2021-02-14 00:39] VITALS: BP 107/63
[2021-02-14] MEDS: OXYcodone/APAP 5/325MG TABLET PO PRN (04:10)
[2021-02-14 05:54] LABS: BASOPHILS % (AUTO) 1 % (0-1); EOSINOPHILS % (AUTO) 3 % (1-7); LYMPHOCYTES % (AUTO) 24 % (22-44); MEAN CORPUSCULAR HGB CONC 34.4 g/dL (33.2-36.2); MEAN PLATELET VOLUME 7.9 fL (7.4-10.4); MONOCYTES % (AUTO) 10 % (2-9); NEUTROPHILS % (AUTO) 63 % (42-75); PLATELET COUNT 107 x10^3/uL (130-400); RED BLOOD COUNT 2.17 x10^6/uL (4.38-5.82); RED CELL DISTRIBUTION WIDTH 15.5 % (9.4-14.8)
[2021-02-14 07:24] VITALS: BP 124/73
[2021-02-14 07:53] LABS: % IRON SATURATION 13 % (20-55); IRON LEVEL 24 mcg/dL (65-175); TOTAL IRON BINDING CAPACITY 191 mcg/dL (250-450)
[2021-02-14 09:30] VITALS: BP 109/70
[2021-02-14] MEDS: DOCUSATE 100 MG CAPSULE PO SCH ×2 (09:33→20:05)
[2021-02-14] MEDS: SENNA/DOCUSATE TABLET PO SCH (09:33)
[2021-02-14] MEDS: FERROUS SULFATE 325 MG TABLET PO SCH ×2 (09:33→16:37)
[2021-02-14] MEDS: CARVEDILOL 3.125 MG TABLET PO SCH ×2 (09:34→20:05)
[2021-02-14] MEDS: SODIUM CHLORIDE FLUSH 10ML SYR IVF SCH ×2 (09:36→21:00)
[2021-02-14] MEDS: HYDROcodone/APAP 7.5-325MG/15ML UDC PO PRN ×2 (10:27→16:51)
[2021-02-14 13:55] VITALS: BP 103/69
[2021-02-14] MEDS: MAGNESIUM HYDROXIDE 8%, 30ML UDC PO PRN (16:37)
[2021-02-14] MEDS: POLYETHYLENE GLYCOL 17 GM PACKET PO PRN (16:37)
[2021-02-14 18:46] VITALS: BP 123/78
[2021-02-15 00:38] VITALS: BP 106/68
[2021-02-15 05:32] LABS: BASOPHILS % (AUTO) 1 % (0-1); EOSINOPHILS % (AUTO) 2 % (1-7); LYMPHOCYTES % (AUTO) 20 % (22-44); MEAN CORPUSCULAR HEMOGLOBIN 32.2 pg (27.5-34.5); MEAN CORPUSCULAR HGB CONC 33.7 g/dL (33.2-36.2); MONOCYTES % (AUTO) 11 % (2-9); NEUTROPHILS % (AUTO) 66 % (42-75); PLATELET COUNT 121 x10^3/uL (130-400); RED CELL DISTRIBUTION WIDTH 15.8 % (9.4-14.8)
[2021-02-15 07:00] VITALS: BP 132/75
[2021-02-15 09:13] VITALS: BP 105/65
[2021-02-15] MEDS: DOCUSATE 100 MG CAPSULE PO SCH ×2 (09:14→21:00)
[2021-02-15] MEDS: FERROUS SULFATE 325 MG TABLET PO SCH ×2 (09:14→16:47)
[2021-02-15] MEDS: CARVEDILOL 3.125 MG TABLET PO SCH ×2 (09:14→23:27)
[2021-02-15] MEDS: SENNA/DOCUSATE TABLET PO SCH (09:14)
[2021-02-15] MEDS: SODIUM CHLORIDE FLUSH 10ML SYR IVF SCH ×2 (09:20→21:00)
[2021-02-15] MEDS: HYDROcodone/APAP 7.5-325MG/15ML UDC PO PRN ×3 (09:32→22:30)
[2021-02-15] MEDS: MAGNESIUM HYDROXIDE 8%, 30ML UDC PO PRN (09:32)
[2021-02-15] MEDS: POLYETHYLENE GLYCOL 17 GM PACKET PO PRN (09:32)
[2021-02-15] MEDS ORDERED: BISACODYL 10 MG SUPP ONE (12:44)
[2021-02-15 12:55] VITALS: BP 105/66
[2021-02-15] MEDS ORDERED: BISACODYL 10 MG SUPP PR PRN (13:00)
[2021-02-15] MEDS ORDERED: POLY17PO5 PO (14:06)
[2021-02-15] MEDS ORDERED: TRAM50TA2 PO (14:06)
[2021-02-15 18:41] VITALS: BP 111/71
[2021-02-15] MEDS: POLYETHYLENE GLYCOL 17 GM PACKET PO SCH (21:00)
[2021-02-15 23:15] VITALS: BP 101/64
[2021-02-16 01:53] VITALS: BP 111/72
[2021-02-16 07:15] VITALS: BP 122/74
[2021-02-16] MEDS: SENNA/DOCUSATE TABLET PO SCH (07:33)
[2021-02-16] MEDS: FERROUS SULFATE 325 MG TABLET PO SCH ×2 (07:33→17:17)
[2021-02-16] MEDS: CARVEDILOL 3.125 MG TABLET PO SCH (07:33)
[2021-02-16] MEDS: DOCUSATE 100 MG CAPSULE PO SCH (07:34)
[2021-02-16] MEDS: SODIUM CHLORIDE FLUSH 10ML SYR IVF SCH (07:58)
[2021-02-16] MEDS ORDERED: BUPROPION SR 150 MG TABLET PO SCH (09:00)
[2021-02-16] MEDS: POLYETHYLENE GLYCOL 17 GM PACKET PO SCH (09:13)
[2021-02-16] MEDS ORDERED: TAMSULOSIN 0.4 MG CAP.ER.24H PO SCH (09:30)
[2021-02-16] MEDS ORDERED: BICTEGRAV/EMTRICIT/TENOFOV ALA TAB PO SCH (09:30)
[2021-02-16] MEDS: HYDROcodone/APAP 7.5-325MG/15ML UDC PO PRN ×2 (12:10→17:17)
[2021-02-16 12:25] VITALS: BP 124/76
[2021-02-16 17:00] VITALS: BP 108/68
== END 2021-02-16 18:40 | DRG 480 ==
LOC: ED 21:14 → EDIP 21:32 → 4NE 22:40
PROVIDERS: ADMIT Family Medicine; ATTEND Hospitalist
PROC: 0QH736Z Insertion of Intramedullary Internal Fixation Device into Left Upper Femur, Percutaneous Approach (ICD-10-PCS; principal; 2021-02-11 10:00)
PROC: 30233N1 Transfusion of Nonautologous Red Blood Cells into Peripheral Vein, Percutaneous Approach (ICD-10-PCS; 2021-02-12)
DX: S72.142A Displaced intertrochanteric fracture of left femur, initial encounter for closed fracture (principal); G93.41 Metabolic encephalopathy; N17.0 Acute kidney failure with tubular necrosis; I50.42 Chronic combined systolic (congestive) and diastolic (congestive) heart failure; I48.20 Chronic atrial fibrillation, unspecified; D50.9 Iron deficiency anemia, unspecified; E78.5 Hyperlipidemia, unspecified; F17.200 Nicotine dependence, unspecified, uncomplicated; I95.81 Postprocedural hypotension; N18.2 Chronic kidney disease, stage 2 (mild); N40.0 Benign prostatic hyperplasia without lower urinary tract symptoms; Z21 Asymptomatic human immunodeficiency virus [HIV] infection status; Z20.822 Contact with and (suspected) exposure to COVID-19; W18.39XA Other fall on same level, initial encounter; Z86.73 Personal history of transient ischemic attack (TIA), and cerebral infarction without residual deficits; Y93.89 Activity, other specified; Y92.89 Other specified places as the place of occurrence of the external cause; Y99.8 Other external cause status
CPT/HCPCS: 36415; 71045; 76000; 80048; 82040; 83540; 83550; 85014; 85018; 85025; 85610; 86850; 86900; 86923; 87635; 93005; 96374; 96375; 99285; C1713; G0378; J0690; J1885; J2405; J2704; J3010; J0330; J2270; J7030; J7040; P9016